=== PATIENT | male | born 1950 | race Caucasian/White ===

== ENCOUNTER 2018-06-14 12:08 | Inpatient (IN) | payer MEDICARE ==
[2018-06-14] MEDS ORDERED: HYDROmorphone 1 MG/ML 1 ML SYRINGE IVP STA ×2 (12:25→13:10)
[2018-06-14] MEDS ORDERED: SODIUM CHLORIDE 0.9% 1,000 ML IV ONE ×2 (12:25→14:32)
[2018-06-14] MEDS ORDERED: ONDANSETRON 4 MG/2 ML VIAL IVP STA (12:25)
--- NOTE | 2018-06-14 12:28 | ED ---
Fall HPI - General Source: patient, EMS Mode of arrival: EMS Limitations: physical limitation <Bob Hercules - Last Filed: 06/14/18 14:16> <Jerman Degroot - Last Filed: 06/14/18 15:06> - General Stated Complaint: Hip Pain Time Seen by Provider: 06/14/18 12:11 - History of Present Illness Initial Comments: This a 68-year-old male presents emergency Department with chief complaint of slip and fall, right hip pain. Patient states he went to check the mail yesterday around noon states that he slipped on ice fell right onto his right hip. Patient states he has severe right hip pain. He was unable to get up so he crawled back into his house and laid there. He states he was unable to get up so he had a urinate on himself. He states that family checked on him today and found him on the ground. Patient states he was unable to get up. Denies any head injury no loss conscious denies any chest pain or shortness of breath. Patient had prior bilateral shoulder surgery by Dr. Negron in the past. (Bob Hercules) - Related Data Home Medications Medication Instructions Recorded Confirmed Hydrocodone/Acetaminophen [[place]enn[place] 1 tab PO Q4H 06/14/18 06/14/18 10-325] Allergies Allergy/AdvReac Type Severity Reaction Status Date / Time No Known Allergies Allergy Verified 06/14/18 12:52 Review of Systems ROS Other: All systems not noted in ROS Statement are negative. <Bob Hercules - Last Filed: 06/14/18 14:16> ROS Other: All systems not noted in ROS Statement are negative. <Jerman Degroot - Last Filed: 06/14/18 15:06> ROS Statement: Those systems with pertinent positive or pertinent negative responses have been documented in the HPI. General Exam General appearance: alert, in no apparent distress Head exam: Present: atraumatic, normocephalic, normal inspection Eye exam: Present: normal appearance, PERRL, EOMI. Absent: scleral icterus, conjunctival injection, periorbital swelling Neck exam: Present: normal inspection, full ROM. Absent: tenderness, meningismus, lymphadenopathy Respiratory exam: Present: normal lung sounds bilaterally. Absent: respiratory distress, wheezes, rales, rhonchi, stridor Cardiovascular Exam: Present: regular rate, normal rhythm, normal heart sounds. Absent: systolic murmur, diastolic murmur, rubs, gallop, clicks Extremities exam: Present: other (Right hips severe times with palpation, pain with any range of motion, neurovascular intact there is some rotation and shortening noted) Neurological exam: Present: alert, oriented X3, CN II-XII intact, reflexes normal. Absent: motor sensory deficit Skin exam: Present: warm, dry, intact, normal color. Absent: rash <Bob Hercules - Last Filed: 06/14/18 14:16> Course <Bob Hercules - Last Filed: 06/14/18 14:16> <Jerman Degroot - Last Filed: 06/14/18 15:06> Vital Signs 06/14/18 12:29 Temperature 98.0 F Pulse Rate 92 Respiratory 19 Rate Blood Pressure 146/78 O2 Sat by Pulse 99 Oximetry - Reevaluation(s) Reevaluation #1: 06/14/18 15:05 PA supervision: I pursued a [id number] evaluation the patient did discuss [employer] him and his family. Patient does have a hip fracture be also does demonstrate evidence of rhabdomyolysis he had fallen and with laying on the floor all night. He also has elevated troponin and does say he's been having fleeting episodes of intermittent chest pains recently. I did discuss the case with Dr. breaux. Patient will be cleared medically for surgery. The patient is admitted to Dr. Baker I do agree with the assessment and plan. (Jerman Degroot ) Medical Decision Making - Lab Data Result diagrams: 06/14/18 12:46 06/14/18 12:46 <Bob Hercules - Last Filed: 06/14/18 14:16> - Lab Data Result diagrams: 06/14/18 12:46 06/14/18 12:46 <Jerman Degroot - Last Filed: 06/14/18 15:06> - Medical Decision Making 68-year-old male present emergency from for a fall. Patient is a right hip fracture. Patient will be admitted to Dr. Baker. Patient will be hydrated , given pain control and [facility] (Bob Hercules) - Lab Data Lab Results 02/17/19 02/17/19 02/17/19 Range/Units 12:46 12:46 12:46 WBC 16.3 H (3.8-10.6) k/uL RBC 4.33 (4.30-5.90) m/uL Hgb 13.9 (13.0-17.5) gm/dL Hct 39.5 (39.0-53.0) % MCV 91.4 (80.0-100.0) fL MCH 32.1 (25.0-35.0) pg MCHC 35.1 (31.0-37.0) g/dL RDW 13.4 (11.5-15.5) % Plt Count 273 (150-450) k/uL Neutrophils % 88 % Lymphocytes % 7 % Monocytes % 4 % Eosinophils % 1 % Basophils % 0 % Neutrophils # 14.3 H (1.3-7.7) k/uL Lymphocytes # 1.1 (1.0-4.8) k/uL Monocytes # 0.6 (0-1.0) k/uL Eosinophils # 0.2 (0-0.7) k/uL Basophils # 0.0 (0-0.2) k/uL PT 10.4 (9.0-12.0) sec INR 1.0 (<1.2) APTT 19.1 L (22.0-30.0) sec Sodium 137 (137-145) mmol/L Potassium 4.2 (3.5-5.1) mmol/L Chloride 103 (98-107) mmol/L Carbon Dioxide 20 L (22-30) mmol/L Anion Gap 14 mmol/L BUN 16 (9-20) mg/dL Creatinine 0.81 (0.66-1.25) mg/dL Est GFR (CKD-EPI)AfAm >90 (>60 ml/min/1.73 sqM) Est GFR (CKD-EPI)NonAf >90 (>60 ml/min/1.73 sqM) Glucose 128 H (74-99) mg/dL Calcium 10.1 (8.4-10.2) mg/dL Total Bilirubin 1.4 H (0.2-1.3) mg/dL AST 223 H (17-59) U/L ALT 58 (21-72) U/L Alkaline Phosphatase 81 (38-126) U/L Total Creatine Kinase (55-170) U/L CK-MB (CK-2) (0.0-2.4) ng/mL CK-MB (CK-2) Rel Index Troponin I (0.000-0.034) ng/mL Total Protein 7.5 (6.3-8.2) g/dL Albumin 4.6 (3.5-5.0) g/dL 06/14/18 Range/Units 12:46 WBC (3.8-10.6) k/uL RBC (4.30-5.90) m/uL Hgb (13.0-17.5) gm/dL Hct (39.0-53.0) % MCV (80.0-100.0) fL MCH (25.0-35.0) pg MCHC (31.0-37.0) g/dL RDW (11.5-15.5) % Plt Count (150-450) k/uL Neutrophils % % Lymphocytes % % Monocytes % % Eosinophils % % Basophils % % Neutrophils # (1.3-7.7) k/uL Lymphocytes # (1.0-4.8) k/uL Monocytes # (0-1.0) k/uL Eosinophils # (0-0.7) k/uL Basophils # (0-0.2) k/uL PT (9.0-12.0) sec INR (<1.2) APTT (22.0-30.0) sec Sodium (137-145) mmol/L Potassium (3.5-5.1) mmol/L Chloride (98-107) mmol/L Carbon Dioxide (22-30) mmol/L Anion Gap mmol/L BUN (9-20) mg/dL Creatinine (0.66-1.25) mg/dL Est GFR (CKD-EPI)AfAm (>60 ml/min/1.73 sqM) Est GFR (CKD-EPI)NonAf (>60 ml/min/1.73 sqM) Glucose (74-99) mg/dL Calcium (8.4-10.2) mg/dL Total Bilirubin (0.2-1.3) mg/dL AST (17-59) U/L ALT (21-72) U/L Alkaline Phosphatase (38-126) U/L Total Creatine Kinase 15339 H* (55-170) U/L CK-MB (CK-2) 18.2 H (0.0-2.4) ng/mL CK-MB (CK-2) Rel Index Troponin I 0.141 H* (0.000-0.034) ng/mL Total Protein (6.3-8.2) g/dL Albumin (3.5-5.0) g/dL 06/14/18 14:04 EKG performed at 13:18 normal sinus rhythm with rate of 85 MS 148 QRS 76 QT status QTC 372/442 (Bob Hercules) Disposition <Bob Hercules - Last Filed: 06/14/18 14:16> <Jerman Degroot - Last Filed: 06/14/18 15:06> Clinical Impression: Fall, Closed right hip fracture, Rhabdomyolysis, Elevated troponin Disposition: ADMITTED IP TO THIS HOSP Condition: Fair
[2018-06-14] MEDS ORDERED: SODIUM CHLORIDE 0.9% 1,000 ML IV SCH ×2 (12:30→14:45)
[2018-06-14 13:18] LABS: Basophils % (A) 0 %; Eosinophils # (A) 0.2 k/uL (0-0.7); Eosinophils % (A) 1 %; HCT 39.5 % (39.0-53.0); HGB 13.9 gm/dL (13.0-17.5); Lymphocytes # (A) 1.1 k/uL (1.0-4.8); Lymphocytes % (A) 7 %; MCH 32.1 pg (25.0-35.0); MCHC 35.1 g/dL (31.0-37.0); MCV 91.4 fL (80.0-100.0); Mean Platelet Volume 7.3; Monocytes # (A) 0.6 k/uL (0-1.0); Monocytes % (A) 4 %; Neutrophils # (A) 14.3 k/uL (1.3-7.7); Neutrophils % (A) 88 %; Platelet Count 273 k/uL (150-450); RBC 4.33 m/uL (4.30-5.90); RDW 13.4 % (11.5-15.5); WBC 16.3 k/uL (3.8-10.6)
[2018-06-14 13:33] LABS: Prothrombin Time 10.4 sec (9.0-12.0)
[2018-06-14 13:37] LABS: ALT 58 U/L (21-72); AST 223 U/L (17-59); Albumin 4.6 g/dL (3.5-5.0); Alkaline Phosphatase 81 U/L (38-126); Anion Gap 14 mmol/L; Blood Urea Nitrogen 16 mg/dL (9-20); Calcium 10.1 mg/dL (8.4-10.2); Carbon Dioxide 20 mmol/L (22-30); Chloride 103 mmol/L (98-107); Glucose 128 mg/dL (74-99); Potassium 4.2 mmol/L (3.5-5.1); Sodium 137 mmol/L (137-145); Total Bilirubin 1.4 mg/dL (0.2-1.3); Total Protein 7.5 g/dL (6.3-8.2)
[2018-06-14 13:49] LABS: Partial Thromboplastin Time 19.1 sec (22.0-30.0)
[2018-06-14] MEDS ORDERED: ONDANSETRON 4 MG/2 ML VIAL IVP PRN (14:00)
[2018-06-14] MEDS ORDERED: NALOXONE 0.4 MG/ML 1 ML VIAL IV PRN (14:00)
--- NOTE | 2018-06-14 14:06 | XR ---
EXAMINATION TYPE: XR chest 1V DATE OF EXAM: 06/14/2018 COMPARISON: NONE HISTORY: 68-year-old male with pain after fall TECHNIQUE: Single frontal view of the chest is obtained. FINDINGS: Heart normal size. Aorta and pulmonary vasculature within normal limits. No consolidation or pleural effusion. IMPRESSION: No acute process.
--- NOTE | 2018-06-14 14:07 | XR ---
EXAMINATION TYPE: XR Hip RT and AP Pelvis DATE OF EXAM: 06/14/2018 COMPARISON: NONE HISTORY: 68-year-old male fall and right hip pain TECHNIQUE: AP view pelvis and 2 views right hip FINDINGS: There is a comminuted, mildly displaced, mildly impacted fracture of the right intertrochanteric miranda on with fragments involving the greater trochanter, lesser trochanter, and intertrochanteric region. The lateral wall appears intact. Rounded bowel content obscuring the sacrum. IMPRESSION: Comminuted, mildly displaced and mildly impacted right IT fracture.
[2018-06-14 14:12] LABS: Creatine Kinase MB 18.2 ng/mL (0.0-2.4)
[2018-06-14 14:32] LABS: Troponin I 0.141 ng/mL (0.000-0.034)
--- NOTE | 2018-06-14 14:35 | ED ---
Medical Decision Making - Medical Decision Making Additional labs came back after the patient was admitted. Patient's also has rhabdomyolysis. Patient was hydrated, started IV fluids at 100ml/hr after 2 L bolus. Patient will have further evaluation by patient [facility]. - Lab Data Result diagrams: 06/14/18 12:46 06/14/18 12:46 Lab Results 06/14/18 06/14/18 06/14/18 Range/Units 12:46 12:46 12:46 WBC 16.3 H (3.8-10.6) k/uL RBC 4.33 (4.30-5.90) m/uL Hgb 13.9 (13.0-17.5) gm/dL Hct 39.5 (39.0-53.0) % MCV 91.4 (80.0-100.0) fL MCH 32.1 (25.0-35.0) pg MCHC 35.1 (31.0-37.0) g/dL RDW 13.4 (11.5-15.5) % Plt Count 273 (150-450) k/uL Neutrophils % 88 % Lymphocytes % 7 % Monocytes % 4 % Eosinophils % 1 % Basophils % 0 % Neutrophils # 14.3 H (1.3-7.7) k/uL Lymphocytes # 1.1 (1.0-4.8) k/uL Monocytes # 0.6 (0-1.0) k/uL Eosinophils # 0.2 (0-0.7) k/uL Basophils # 0.0 (0-0.2) k/uL PT 10.4 (9.0-12.0) sec INR 1.0 (<1.2) APTT 19.1 L (22.0-30.0) sec Sodium 137 (137-145) mmol/L Potassium 4.2 (3.5-5.1) mmol/L Chloride 103 (98-107) mmol/L Carbon Dioxide 20 L (22-30) mmol/L Anion Gap 14 mmol/L BUN 16 (9-20) mg/dL Creatinine 0.81 (0.66-1.25) mg/dL Est GFR (CKD-EPI)AfAm >90 (>60 ml/min/1.73 sqM) Est GFR (CKD-EPI)NonAf >90 (>60 ml/min/1.73 sqM) Glucose 128 H (74-99) mg/dL Calcium 10.1 (8.4-10.2) mg/dL Total Bilirubin 1.4 H (0.2-1.3) mg/dL AST 223 H (17-59) U/L ALT 58 (21-72) U/L Alkaline Phosphatase 81 (38-126) U/L Total Creatine Kinase (55-170) U/L CK-MB (CK-2) (0.0-2.4) ng/mL CK-MB (CK-2) Rel Index Troponin I (0.000-0.034) ng/mL Total Protein 7.5 (6.3-8.2) g/dL Albumin 4.6 (3.5-5.0) g/dL 06/14/18 Range/Units 12:46 WBC (3.8-10.6) k/uL RBC (4.30-5.90) m/uL Hgb (13.0-17.5) gm/dL Hct (39.0-53.0) % MCV (80.0-100.0) fL MCH (25.0-35.0) pg MCHC (31.0-37.0) g/dL RDW (11.5-15.5) % Plt Count (150-450) k/uL Neutrophils % % Lymphocytes % % Monocytes % % Eosinophils % % Basophils % % Neutrophils # (1.3-7.7) k/uL Lymphocytes # (1.0-4.8) k/uL Monocytes # (0-1.0) k/uL Eosinophils # (0-0.7) k/uL Basophils # (0-0.2) k/uL PT (9.0-12.0) sec INR (<1.2) APTT (22.0-30.0) sec Sodium (137-145) mmol/L Potassium (3.5-5.1) mmol/L Chloride (98-107) mmol/L Carbon Dioxide (22-30) mmol/L Anion Gap mmol/L BUN (9-20) mg/dL Creatinine (0.66-1.25) mg/dL Est GFR (CKD-EPI)AfAm (>60 ml/min/1.73 sqM) Est GFR (CKD-EPI)NonAf (>60 ml/min/1.73 sqM) Glucose (74-99) mg/dL Calcium (8.4-10.2) mg/dL Total Bilirubin (0.2-1.3) mg/dL AST (17-59) U/L ALT (21-72) U/L Alkaline Phosphatase (38-126) U/L Total Creatine Kinase 04274 H* (55-170) U/L CK-MB (CK-2) 18.2 H (0.0-2.4) ng/mL CK-MB (CK-2) Rel Index Troponin I 0.141 H* (0.000-0.034) ng/mL Total Protein (6.3-8.2) g/dL Albumin (3.5-5.0) g/dL Disposition Clinical Impression: Fall, Closed right hip fracture, Rhabdomyolysis Disposition: ADMITTED IP TO THIS HOSP Condition: Fair
[2018-06-14 15:17] LABS: Appearance,Urine Clear (Clear); Bilirubin,Urine Negative (Negative); Blood,Urine Large (Negative); Color,Urine Yellow; Glucose,Urine (UA) Negative (Negative); Hyaline Casts,Urine 1 /lpf (0-2); Ketones,Urine 1+ (Negative); Leukocyte Esterase,Urine Negative (Negative); Mucus,Urine Few /hpf; Nitrite,Urine Negative (Negative); PH, Urine 5.5 (5.0-8.0); Protein,Urine 1+ (Negative); RBC,Urine 2 /hpf (0-5); Specific Gravity,Urine 1.024 (1.001-1.035); Squamous Epithelial Cell,Urine <1 /hpf (0-4); Urobilinogen,Urine <2.0 mg/dL (<2.0); WBC,Urine 2 /hpf (0-5)
[2018-06-14] MEDS: HYDROmorphone 1 MG/ML 1 ML SYRINGE IVP PRN ×2 (16:05→22:28)
[2018-06-14] MEDS ORDERED: TEMAZEPAM 15 MG CAP PO PRN (17:37)
[2018-06-14] MEDS ORDERED: ALPRAZolam 0.25 MG TAB PO PRN (17:37)
--- NOTE | 2018-06-14 18:14 | HP ---
HISTORY AND PHYSICAL DATE OF SERVICE: 06/14/2018 CHIEF COMPLAINT: Fall and hip pain. HISTORY OF PRESENT ILLNESS: This 68-year-old gentleman with a past medical history of orthopedic surgery, otherwise no other medical issues, being followed by Dr. Jackson in the outpatient setting apparently went to the mailbox to take in the mail and patient was put on ice and patient fell. Patient was complaining of back pain. Patient unable to crawl to the house and subsequently patient was there almost like 24 hours before help. The room was cold also according to him. Patient came to [facility] Emergency Room today and was found to have a creatine kinase elevated up to 14,044 and right hip fracture suspected. Troponin was also elevated at 0.141. There is no history of fever, rigors. No history of palpitation, headache, loss of consciousness, seizures at this time. PAST MEDICAL HISTORY: DJD. MEDICATIONS: Home medications are hydrocodone 10 mg q.4h p.r.n. ALLERGIES: None. FAMILY HISTORY: History of heart disease and strokes. SOCIAL HISTORY: History of smoking. No history of alcohol intake. REVIEW OF SYSTEMS: ENT: No diminished hearing or vision. CARDIOVASCULAR: No angina. RESPIRATORY: No cough or hemoptysis. GI: No nausea. : No dysuria. NERVOUS SYSTEM: No numbness or weakness. ALLERGY/IMMUNOLOGY: No asthma. MUSCULOSKELETAL: As mentioned earlier. HEMATOLOGY: No history of anemia. ENDOCRINE: No history of diabetes or hypothyroidism. CONSTITUTIONAL: As mentioned. DERMATOLOGY: Negative. RHEUMATOLOGY: Negative. PSYCHIATRY: As mentioned earlier. PHYSICAL EXAMINATION: Alert, oriented x3. Pulse 92, blood pressure 140/78, respirations 19, temperature 98 degrees, pulse ox 99% on room air. HEENT: Conjunctivae normal. NECK: No jugular venous distention. CARDIOVASCULAR: S1, S2. RESPIRATORY: Breath sounds diminished in the bases. No rhonchi, no crackles. ABDOMEN: Soft, nontender. No mass palpable. LEGS: Significant movement of the pain of the right leg on movement. Ecchymosis present. SKIN: No ulcer, rash, bleeding. JOINTS: No active deforming arthropathy. LAB STUDIES: WBC 16.3, sodium 139, potassium 4.2. The total bilirubin is 1.4, AST is 223 and creatine kinase is noted. ASSESSMENT: 1. Fall and possible acute right hip fracture. 2. Acute rhabdomyolysis. 3. Troponin 0.141, rule out myocardial infarction. 4. Increased AST. 5. Increased creatine kinase. 6. Increased WBC possibly reactive. RECOMMENDATIONS AND DISCUSSION: This 68-year-old gentleman was admitted with multiple medical problems with possibly acute right hip fracture. At this time I recommend continue current management and symptomatic treatment. I recommend D5 water with sodium bicarb and continue to monitor. Otherwise monitor CK closely. EKG showed no acute abnormality. Serial troponins will be ordered. Cardiology consultation will be ordered prior to possible surgery. Orthopedic evaluation has been sought. DVT prophylaxis. Pain medications. Prognosis guarded because of multiple complex medical issues. Further recommendations to follow. Copy of dictation forwarded to Dr. Jackson who is the primary physician. PEGGY / SHILAN: [id number] /
[2018-06-14] MEDS: HYDROmorphone 0.5 MG/0.5 ML SYRINGE IVP PRN (19:25)
[2018-06-14] MEDS: HYDROcodone/APAP 10-325MG 1 EACH TAB PO SCH ×2 (21:04→21:08)
[2018-06-14] MEDS: HEPARIN SODIUM,PORCINE 5,000 UNIT/ML 1 ML VIAL SQ SCH (21:05)
[2018-06-14] MEDS: NICOTINE 14MG/24HR PATCH TRANSDERM SCH (21:05)
[2018-06-14] MEDS: DEXTROSE 5% IN WATER 1,000 ML with SODIUM BICARB (1 MEQ/ML) 100 ML IV SCH (21:24)
[2018-06-15] MEDS: HYDROcodone/APAP 10-325MG 1 EACH TAB PO SCH ×5 (01:05→17:52)
[2018-06-15] MEDS: DEXTROSE 5% IN WATER 1,000 ML with SODIUM BICARB (1 MEQ/ML) 100 ML IV SCH ×4 (01:50→23:05)
[2018-06-15] MEDS: HYDROmorphone 1 MG/ML 1 ML SYRINGE IVP PRN ×5 (02:43→16:34)
[2018-06-15 05:38] LABS: Basophils # (A) 0.1 k/uL (0-0.2); Basophils % (A) 1 %; Eosinophils # (A) 0.1 k/uL (0-0.7); Eosinophils % (A) 1 %; HCT 29.3 % (39.0-53.0); Lymphocytes # (A) 2.5 k/uL (1.0-4.8); Lymphocytes % (A) 22 %; MCH 31.5 pg (25.0-35.0); MCHC 33.6 g/dL (31.0-37.0); MCV 93.9 fL (80.0-100.0); Mean Platelet Volume 6.1; Monocytes # (A) 0.6 k/uL (0-1.0); Monocytes % (A) 5 %; Neutrophils # (A) 7.8 k/uL (1.3-7.7); Neutrophils % (A) 70 %; Platelet Count 204 k/uL (150-450); RBC 3.12 m/uL (4.30-5.90); RDW 13.6 % (11.5-15.5); WBC 11.1 k/uL (3.8-10.6)
[2018-06-15 05:45] LABS: HGB 9.8 gm/dL (13.0-17.5)
[2018-06-15 05:49] LABS: ALT 56 U/L (21-72); AST 187 U/L (17-59); Albumin 2.8 g/dL (3.5-5.0); Alkaline Phosphatase 47 U/L (38-126); Anion Gap 4 mmol/L; Blood Urea Nitrogen 14 mg/dL (9-20); Calcium 8.5 mg/dL (8.4-10.2); Carbon Dioxide 28 mmol/L (22-30); Chloride 102 mmol/L (98-107); Glucose 120 mg/dL (74-99); Potassium 4.6 mmol/L (3.5-5.1); Sodium 134 mmol/L (137-145); Total Bilirubin 0.6 mg/dL (0.2-1.3)
[2018-06-15 06:09] LABS: Creatine Kinase 10584 U/L (55-170)
[2018-06-15] MEDS: PANTOPRAZOLE 40 MG TABLET PO SCH (06:42)
[2018-06-15] MEDS: HEPARIN SODIUM,PORCINE 5,000 UNIT/ML 1 ML VIAL SQ SCH ×2 (08:45→23:09)
[2018-06-15] MEDS: NICOTINE 14MG/24HR PATCH TRANSDERM SCH (08:46)
[2018-06-15] MEDS: HYDROmorphone 0.5 MG/0.5 ML SYRINGE IVP PRN ×3 (08:48→23:18)
--- NOTE | 2018-06-15 10:51 | CONS ---
CONSULTATION Mr. Villalobos is a 68-year-old gentleman who is seen for preop cardiac evaluation. This patient had a fall and fractured right hip. The patient was lying on the floor for more than 24 hours. The patient did not have any chest pain. Patient denies any prior history of myocardial infarction or exertional angina, congestive heart failure, stroke, or diabetes. The patient is physically and functionally otherwise active in functional class 3. The patient had a minimally elevated troponin. EKG does not show any acute ischemic changes. PAST MEDICAL HISTORY: Past medical history includes no history of any major surgeries. REVIEW OF THE SYSTEM: Unremarkable. PHYSICAL EXAMINATION: Physical examination at present reveals a 68-year-old gentleman who does not appear to be in any acute distress. Blood pressure is 118/60 mmHg, heart rate is 85 per minute. Head/ENT examination is negative. Neck is supple. There is no increase in jugular venous pressure. Both the carotid pulses are felt. There is no bruit. Chest is symmetrical. HEART: The PMI is not felt. First and second heart sounds are normal. There is no evidence of any murmur. Lungs are clinically clear to auscultation and percussion. Abdomen is soft. Liver and spleen are not enlarged. Bowel sounds are heard. EXTREMITIES: Peripheral pulsations are 2+. EKG shows normal sinus rhythm without any acute ischemic changes. The patient's electrolytes are normal. CPK significantly was elevated. The patient's initial troponin is 0.141. No other troponin is available. The patient's echocardiogram reveals normal left ventricular systolic function without any wall motion. FINAL IMPRESSION: This patient has sustained a fall and he was lying on the floor for long time and has sustained a hip fracture. He did not have any symptoms suggestive of angina. EKG does not show any ischemic changes. The mild elevation in the troponin is most likely due to the rhabdomyolysis and he had been lying on the floor for a long time. We will repeat the EKG and repeat the troponin. If the EKG does not show any ischemic changes, one can proceed with surgery. The risk and benefits were fully explained to the patient and he wants to proceed with the surgery. MMODL / IJN: [id number] /
--- NOTE | 2018-06-15 11:29 | ECHOF ---
Referral [facility] MEASUREMENTS -------- HEIGHT: 162.6 cm WEIGHT: 61.2 kg BP: 118/60 IVSd: 0.8 cm (0.6 - 1.1) LVIDd: 3.8 cm (3.9 - 5.3) LVPWd: 1.0 cm (0.6 - 1.1) IVSs: 1.1 cm LVIDs: 2.3 cm LVPWs: 1.2 cm Ao Diam: 2.7 cm (2.0 - 3.7) AV Cusp: 1.7 cm (1.5 - 2.6) LA Diam: 2.7 cm (2.7 - 3.8) MV EXCURSION: 19.436 mm (> 18.000) MV EF SLOPE: 90 mm/s (70 - 150) EPSS: 1.8 cm MV E Martinez: 0.65 m/s MV DecT: 254 ms MV A Martinez: 0.98 m/s MV E/A Ratio: 0.66 RAP: 5.00 mmHg RVSP: 8.79 mmHg FINDINGS -------- Sinus rhythm. This was a technically difficult study with suboptimal views. Pt unable to turn due to hip fx. The left ventricular size is normal. Left ventricular wall thickness is normal. Overall left vent ricular systolic function is normal with, an EF between 55 - 60 %. The right ventricle is normal in size and function. The left atrium is normal in size. The right atrium is normal in size. The aortic valve is trileaflet, and appears structurally normal. No aortic stenosis or regurgitation. There is trace mitral regurgitation. Trace tricuspid regurgitation present. The right ventricular systolic pressure, as measured by Dopp ler, is 8.79mmHg. Pulmonic valve appears structurally normal. The aortic root size is normal. IVC Not well visulized. The pericardium is normal. CONCLUSIONS -------- 1. Sinus rhythm. 2. This was a technically difficult study with suboptimal views. 3. Pt unable to turn due to hip fx. 4. The left ventricular size is normal. 5. Left ventricular wall thickness is normal. 6. Overall left ventricular systolic function is normal with, an EF between 55 - 60 %. 7. The right ventricle is normal in size and function. 8. The left atrium is normal in size. 9. The right atrium is normal in size. 10. The aortic valve is trileaflet, and appears structurally normal. No aortic stenosis or regurgitat ion. 11. There is trace mitral regurgitation. 12. Trace tricuspid regurgitation present. 13. The right ventricular systolic pressure, as measured by Doppler, is 8.79mmHg. 14. Pulmonic valve appears structurally normal. 15. The aortic root size is normal. 16. IVC Not well visulized. 17. The pericardium is normal. HULL AND DECK REMOVER: Rosa Rocha RDCS
--- NOTE | 2018-06-15 14:29 | P.HPOR ---
History of Present Illness H&P Date: 06/15/18 Chief Complaint: Right dispalced intertrochanteric hip fracture Patient is a 68-year-old male who was brought to [facility] yesterday afternoon with a right hip injury. Patient the day before patient was getting his mail, he fell directly on that right side. After fall, he was unable to weight-bear. He was able to crawl back to his hospital. He was found to the next day by Fabricio. He was immediately brought to the hospital. Imaging and lab tests were done. Images demonstrated a displaced right intertrochanteric femur fracture. I was contacted by the emergency room staff, the case was discussed, the patient was admitted under our care. Patient was evaluated this morning at bedside, had family present. Patient was resting comfortably with no acute pain. He notes discomfort in the right hip with movement. He denies any other orthopedic complaints this time. He denies any previous orthopedic surgery. Patient is relatively healthy. He denies any blood thinners on a daily basis. He denies any fevers or chills, chest pain or shortness of breath at this time. Review of Systems Constitutional: Reports as per HPI Past Medical History Past Medical History: No Reported History History of Any Multi-Drug Resistant Organisms: None Reported Past Surgical History: Orthopedic Surgery Additional Past Surgical History / Comment(s): tonsilectomy, rotator cuff on 2001 Past Anesthesia/Blood Transfusion Reactions: No Reported Reaction Past Psychological History: No Psychological Hx Reported Smoking Status: Current some day smoker Past Alcohol Use History: None Reported Past Drug Use History: None Reported Medications and Allergies Home Medications Medication Instructions Recorded Confirmed Type Hydrocodone/Acetaminophen [Taylor 1 tab PO Q4H 06/14/18 06/14/18 History 10-325] Allergies Allergy/AdvReac Type Severity Reaction Status Date / Time No Known Allergies Allergy Verified 06/14/18 12:52 Physical Examination Right lower extremity: No obvious open lesions or sores, no cervical areas of ecchymosis or soft tissue swelling Obvious shortening and external rotation compared to the contralateral side He is unable to straight leg raise, logroll maneuver reproduces significant pain in the groin Tender with palpation over the greater trochanter No tenderness with palpation throughout the knee, foot or ankle Calf is soft, no tenderness with palpation, sensory exam to light touch is intact, dorsalis pedis pulses 2+ Results - Labs Labs: Abnormal Lab Results - Last 24 Hours (Table) 06/14/18 06/14/18 06/15/18 Range/Units 12:46 14:50 05:07 WBC 11.1 H (3.8-10.6) k/uL RBC 3.12 L (4.30-5.90) m/uL Hgb 9.8 L D (13.0-17.5) gm/dL Hct 29.3 L (39.0-53.0) % Neutrophils # 7.8 H (1.3-7.7) k/uL Sodium (137-145) mmol/L Glucose (74-99) mg/dL AST (17-59) U/L Creatine Kinase (55-170) U/L Total Creatine Kinase 77165 H* (55-170) U/L CK-MB (CK-2) 18.2 H (0.0-2.4) ng/mL Troponin I 0.141 H* (0.000-0.034) ng/mL Total Protein (6.3-8.2) g/dL Albumin (3.5-5.0) g/dL Urine Protein 1+ H (Negative) Urine Ketones 1+ H (Negative) Urine Blood Large H (Negative) Urine Mucus Few H (None) /hpf 06/15/18 06/15/18 Range/Units 05:07 11:51 WBC (3.8-10.6) k/uL RBC (4.30-5.90) m/uL Hgb (13.0-17.5) gm/dL Hct (39.0-53.0) % Neutrophils # (1.3-7.7) k/uL Sodium 134 L (137-145) mmol/L Glucose 120 H (74-99) mg/dL AST 187 H (17-59) U/L Creatine Kinase 89788 H* (55-170) U/L Total Creatine Kinase (55-170) U/L CK-MB (CK-2) (0.0-2.4) ng/mL Troponin I 0.086 H* (0.000-0.034) ng/mL Total Protein 5.0 L (6.3-8.2) g/dL Albumin 2.8 L (3.5-5.0) g/dL Urine Protein (Negative) Urine Ketones (Negative) Urine Blood (Negative) Urine Mucus (None) /hpf H & H 06/14/18 06/15/18 Range/Units 12:46 05:07 Hgb 13.9 9.8 L D (13.0-17.5) gm/dL Hct 39.5 29.3 L (39.0-53.0) % Coagulation 06/14/18 Range/Units 12:46 INR 1.0 (<1.2) Result Diagrams: 06/15/18 05:07 06/15/18 05:07 - Diagnostic results Hip x-ray: report reviewed, image reviewed Assessment and Plan Plan: Imaging: X-ray the right hip and pelvis were obtained. Images demonstrated a right intertrochanteric femur fracture with moderate displacement Assessment: 1. Right intertrochanteric femur fracture 2. Status post fall from standing 3. Other medical comorbidities Plan: I was able to discuss the case, including both physical exam findings and imaging studies might any Dr. Baker. Our plan is to proceed with surgical intervention, more specifically insertion of intramedullary nail of the right femur fracture. We would like to proceed with this on 06/15/2018 Patient was made nothing by mouth on 06/14/2018 Risk and benefits the procedure discussed with the patient, this including but not excluding blood loss, infection, neurovascular injury, infection, development blood clots, pain and stiffness, need for subsequent surgery. Patient is in good understanding would like to proceed Obtaining consent Nonweightbearing right lower extremity Nothing by mouth Medical and cardiac clearance has been achieved Further recommendations to follow after surgery Time with Patient: Less than 30
[2018-06-15] MEDS ORDERED: IV FLUID CONTINUATION 1,000 ML IV ONE (17:06)
[2018-06-15] MEDS ORDERED: LACTATED RINGERS 1,000 ML IV ONE (17:50)
[2018-06-15] MEDS ORDERED: LIDOCAINE 1% INJ 10MG/ML (20 ML MDV) ONE (17:54)
[2018-06-15] MEDS ORDERED: PHENYLEPHRINE-0.9% NACL SYG 1 MG/10 ML SYRINGE ONE (17:54)
[2018-06-15] MEDS ORDERED: ceFAZolin 1,000 MG VIAL ONE (17:54)
[2018-06-15] MEDS ORDERED: PROPOFOL 10 MG/ML 20 ML VIAL IV ONE (17:54)
[2018-06-15] MEDS ORDERED: MIDAZOLAM 2 MG/2 ML VIAL ONE (17:54)
[2018-06-15] MEDS ORDERED: fentaNYL (PF) 50 MCG/ML 2 ML AMP ONE (17:54)
[2018-06-15] MEDS ORDERED: ceFAZolin 1,000 MG in SODIUM CHLORIDE 0.9% 1,000 ML IRRIGATION ONE (18:29)
[2018-06-15] MEDS ORDERED: HYDROmorphone 0.5 MG/0.5 ML SYRINGE IVP PRN ×2 (19:08)
[2018-06-15] MEDS ORDERED: NALOXONE 0.4 MG/ML 1 ML VIAL IV PRN (19:08)
[2018-06-15] MEDS ORDERED: ONDANSETRON 4 MG/2 ML VIAL IVP PRN (19:08)
[2018-06-15] MEDS ORDERED: HYDROcodone/APAP 5-325MG 1 EACH TAB PO PRN (19:08)
--- NOTE | 2018-06-15 19:08 | P.OP ---
Date of Procedure: 06/15/18 Preoperative Diagnosis: Comminuted right hip intertrochanteric fracture Postoperative Diagnosis: Same Procedure(s) Performed: Trochanteric intramedullary nailing right hip intertrochanteric fracture Implants: Synthes 10 mm/130 degree cannulated trochanteric femoral nail/170 mm with a 11 x 90 mm helical blade and one 5.0 36 mm distal locking screw Anesthesia: SILVIA Surgeon: Harjit Baker Pelletising Extruder Operator #1: David Sauceda Estimated Blood Loss (ml): 20 Pathology: none sent Condition: stable Disposition: PACU Indications for Procedure: 68-year-old patient seen with a comminuted displaced right hip intertrochanteric fracture. I recommended intramedullary trochanteric nailing. I reviewed the procedure, risks, complications and recovery. Patient was agreeable and consent was obtained Operative Findings: see description of procedure Description of Procedure: The patient was taken to the operative suite. The patient underwent a general anesthetic by the department of anesthesia. The patient received preoperative antibiotics. The patient was transferred to the [place] table. Both lower extremities were placed in the spars. The left lower extremity was dropped on the ground. The right lower extremity is placed in traction with adduction and slight internal rotation. C-arm was brought into the field confirming adequate reduction. The right hip was now prepped and draped in the normal sterile fashion. An incision was made just proximal to the greater trochanter. Blunt dissection taken down to the tip of the trochanter. I then introduced a guidewire by hand making sure I was at the proper entry point and intramedullary. This was confirmed under AP and lateral intraoperative imaging. I now opened up the proximal trochanteric area. I now shows the 10 mm I want her 70 mm Synthes cannulated trochanteric nail. It was introduced into the trochanteric opening and then tapped down the intramedullary canal until it was in appropriate position. I now introduced my guide for the helical blade. An incision was made. The guide was laced down touching the proximal lateral femur. I now introduced a guidewire making sure was properly position under AP and lateral intraoperative imaging. I then reamed appropriately over the guidewire introduced my 11 mm x 90 mm helical blade. We now locked in position with our set screw. We then introduced a guide for our distal locking screw. An incision was made. The guide was taken down to the lateral cortex. The drill hole was made and a 36 mm screw was introduced with good bite and purchase. I checked the entire construct under AP lateral operative imaging was stable. All the outriggers were removed. We again reviewed the construct with a good reduction and internal fixation placement. Spot films were obtained to document that. The wounds were irrigated with antibiotic irrigant solution. The subcu soft tissues were approximated with 2- 0 Vicryl and all 3 incision sites. The skin margins were approximated with skin payam all 3 incision sites. Sterile dressings were applied. The patient was awakened, transferred to a bed and recovery stable condition. Tin GARRETT assisted with the procedure.
[2018-06-15] MEDS ORDERED: HYDROmorphone 1 MG/ML 1 ML SYRINGE IVP ONE ×4 (19:29→20:40)
[2018-06-15] MEDS ORDERED: diphenhydrAMINE 50 MG/ML 1 ML VIAL IVP ONE (19:40)
[2018-06-15] MEDS ORDERED: fentaNYL (PF) 50 MCG/ML 2 ML AMP IVP ONE (19:54)
[2018-06-15] MEDS: SODIUM CHLORIDE 0.9% 1,000 ML IV SCH (20:11)
--- NOTE | 2018-06-15 20:11 | PN ---
PROGRESS NOTE DATE OF SERVICE: 06/15/2018 This 68-year-old gentleman admitted with fall and significant rhabdomyolysis. Patient also had renal failure. The patient also had right hip fracture also. The troponin was elevated. Cardiology has been consulted. A 2D echo with Doppler was done which showed normal ejection fraction 50-60 percent. EKG did not show any acute abnormality. Cardiology has cleared the patient for surgery. No chest pain. No palpitations. No fever. No shortness of breath. EXAM: Alert and oriented x3. Pulse 85. Blood pressure 118/60. Respirations 18. Temperature 98.4, pulse ox 98% on room air. HEENT: Conjunctivae normal. NECK: No jugular venous distention. CARDIOVASCULAR: S1-S2 muffled. Respirations: Breath sounds diminished in the bases. No rhonchi. No crackles. Abdomen: Soft. Legs status post right hip fracture. Nervous system: No focal deficits. LABS: WBC 11.2, hemoglobin 9.2. Sodium 134, creatinine kinase is 10, 584. ASSESSMENT: 1. Fall and status post right hip fracture. 2. Acute rhabdomyolysis. 3. Troponin 0.141 indeterminate. 4. Possibly secondary rhabdomyolysis. 5. Increased AST. 6. Increased creatinine kinase. 7. Increased WBC possibly reactive. BECAUSE: Recommend to continue current medications. Continue with monitoring. Symptomatic treatment. Otherwise, at this time, I would recommend continue the rest of medications. Patient will be cleared for surgery. Repeat labs. Continue with IV fluids and guarded prognosis. Further recommendations to follow. MMKISHOREL / IJN: [id number] /
[2018-06-15] MEDS: HYDROcodone/APAP 5-325MG 1 EACH TAB PO PRN (21:16)
[2018-06-15 22:56] LABS: Basophils % (A) 0 %; Eosinophils # (A) 0.1 k/uL (0-0.7); Eosinophils % (A) 1 %; HCT 26.4 % (39.0-53.0); HGB 9.1 gm/dL (13.0-17.5); Lymphocytes # (A) 1.2 k/uL (1.0-4.8); Lymphocytes % (A) 13 %; MCH 32.4 pg (25.0-35.0); MCHC 34.5 g/dL (31.0-37.0); Mean Platelet Volume 6.3; Monocytes # (A) 0.5 k/uL (0-1.0); Monocytes % (A) 5 %; Neutrophils # (A) 7.8 k/uL (1.3-7.7); Neutrophils % (A) 81 %; Platelet Count 171 k/uL (150-450); RBC 2.81 m/uL (4.30-5.90); RDW 13.4 % (11.5-15.5); WBC 9.7 k/uL (3.8-10.6)
[2018-06-15] MEDS: ceFAZolin IN SWFI 2 GM/20 ML SYRINGE IVP SCH (23:09)
[2018-06-15] MEDS: SENNOSIDES-DOCUSATE SODIUM 1 EACH TAB PO SCH (23:09)
[2018-06-16] MEDS: HYDROmorphone 0.5 MG/0.5 ML SYRINGE IVP PRN ×2 (02:50→07:08)
[2018-06-16] MEDS: HYDROcodone/APAP 5-325MG 1 EACH TAB PO PRN ×2 (03:58→09:24)
--- NOTE | 2018-06-16 04:55 | FL ---
EXAMINATION TYPE: FL guidance operating room, XR Hip Complete RT DATE OF EXAM: 06/15/2018 FINDINGS: 2 intraoperative fluoroscopic images during antegrade intramedullary nailing and screw fixation on th e right. FLUOROSCOPY Fluoroscopy time of 1 minute 58 seconds was used during right hip IT nailing. 2 image/s document/s t he procedure. IMPRESSION: Intraoperative fluoroscopy as above.
[2018-06-16] MEDS: NICOTINE 14MG/24HR PATCH TRANSDERM SCH (07:07)
[2018-06-16] MEDS: PANTOPRAZOLE 40 MG TABLET PO SCH (07:07)
[2018-06-16] MEDS: HEPARIN SODIUM,PORCINE 5,000 UNIT/ML 1 ML VIAL SQ SCH ×3 (07:07→22:34)
[2018-06-16] MEDS: ENOXAPARIN 40 MG/0.4 ML SYRINGE SQ SCH (07:07)
[2018-06-16] MEDS: ceFAZolin IN SWFI 2 GM/20 ML SYRINGE IVP SCH (08:01)
[2018-06-16 08:14] LABS: Basophils # (A) 0.1 k/uL (0-0.2); Basophils % (A) 1 %; Eosinophils # (A) 0.1 k/uL (0-0.7); Eosinophils % (A) 1 %; HCT 26.6 % (39.0-53.0); HGB 8.9 gm/dL (13.0-17.5); Lymphocytes # (A) 1.8 k/uL (1.0-4.8); Lymphocytes % (A) 22 %; MCH 31.7 pg (25.0-35.0); MCHC 33.6 g/dL (31.0-37.0); MCV 94.4 fL (80.0-100.0); Mean Platelet Volume 6.3; Monocytes # (A) 0.5 k/uL (0-1.0); Monocytes % (A) 6 %; Neutrophils # (A) 5.4 k/uL (1.3-7.7); Neutrophils % (A) 68 %; Platelet Count 188 k/uL (150-450); RBC 2.81 m/uL (4.30-5.90); RDW 13.4 % (11.5-15.5); WBC 7.9 k/uL (3.8-10.6)
[2018-06-16 08:35] LABS: ALT 65 U/L (21-72); AST 154 U/L (17-59); Albumin 2.6 g/dL (3.5-5.0); Alkaline Phosphatase 59 U/L (38-126); Anion Gap 3 mmol/L; Blood Urea Nitrogen 9 mg/dL (9-20); Calcium 8.3 mg/dL (8.4-10.2); Carbon Dioxide 32 mmol/L (22-30); Chloride 99 mmol/L (98-107); Glucose 94 mg/dL (74-99); Potassium 4.3 mmol/L (3.5-5.1); Sodium 134 mmol/L (137-145); Total Bilirubin 1.1 mg/dL (0.2-1.3); Total Protein 4.8 g/dL (6.3-8.2)
[2018-06-16] MEDS: DEXTROSE 5% IN WATER 1,000 ML with SODIUM BICARB (1 MEQ/ML) 100 ML IV SCH ×3 (08:40→23:40)
[2018-06-16] MEDS: SODIUM CHLORIDE 0.9% 1,000 ML IV SCH ×2 (08:41→22:35)
[2018-06-16 09:21] LABS: Creatine Kinase 6513 U/L (55-170)
[2018-06-16] MEDS ORDERED: HYDROcodone/APAP 10-325MG 1 EACH TAB PO PRN (10:08)
[2018-06-16] MEDS: HYDROmorphone 1 MG/ML 1 ML SYRINGE IVP PRN ×5 (10:14→22:32)
[2018-06-16] MEDS: traMADol 50 MG TAB PO SCH ×4 (11:22→21:06)
--- NOTE | 2018-06-16 12:59 | P.PN ---
Subjective Progress Note Date: 06/16/18 Principal diagnosis: Status post intramedullary nail right intertrochanteric femur fracture Patient I would at bedside today, he did have an increase in pain. We did increase his oral pain medication. Darby catheter remains in place. He has not worked with physical therapy at this time. Denies any chest pain or shortness of breath. Objective - Vital Signs Vital signs: Vital Signs Temp 99.4 F 06/16/18 07:05 Pulse 76 06/16/18 07:05 Resp 16 06/16/18 07:40 BP 141/70 06/16/18 07:05 Pulse Ox 97 06/16/18 07:05 Intake & Output 06/15/18 06/16/18 06/16/18 18:59 06:59 18:59 Intake Total 1101 475 354 Output Total 600 1330 Balance 501 -855 354 Intake: IV 1101 250 Intake, IV Titration 225 Amount Sodium Chloride 0.9% 1, 225 000 ml @ 75 mls/hr IV . [id number] [facility] Rx#:[id number] Oral 354 Output: Urine 600 1310 Estimated Blood Loss 20 Other: Voiding Method Indwelling Catheter Indwelling Catheter Indwelling Catheter - Exam Right lower extremity: Incision is clean, dry, and intact. Sara are in good position There is minimal soft tissue swelling and ecchymosis surrounding the medial and lateral aspects of the incision. Calf is soft, no tenderness with palpation. Plantar flexion, dorsiflexion, EHL, FHL are intact. Sensory exam to light touch throughout the extremity is intact, dorsal pedis pulses 2+. - Labs CBC & Chem 7: 06/16/18 07:01 06/16/18 07:01 Labs: Abnormal Lab Results - Last 24 Hours (Table) 06/15/18 06/16/18 06/16/18 Range/Units 22:43 07:01 07:01 RBC 2.81 L 2.81 L (4.30-5.90) m/uL Hgb 9.1 L 8.9 L (13.0-17.5) gm/dL Hct 26.4 L 26.6 L (39.0-53.0) % Neutrophils # 7.8 H (1.3-7.7) k/uL Sodium 134 L (137-145) mmol/L Carbon Dioxide 32 H (22-30) mmol/L Calcium 8.3 L (8.4-10.2) mg/dL AST 154 H (17-59) U/L Creatine Kinase 6513 H* (55-170) U/L Total Protein 4.8 L (6.3-8.2) g/dL Albumin 2.6 L (3.5-5.0) g/dL Assessment and Plan Plan: Assessment: Postop day 1 status post intramedullary nail right intertrochanteric femur fracture Plan: Pain control, continue current medication GI and DVT prophylaxis, continue subcu medication Discontinue urinary catheter today Attempt gait training with physical therapy and use of walker Medical recommendations Further recommendations to follow Time with Patient: Less than 30
[2018-06-16] MEDS ORDERED: traMADol 50 MG TAB PO SCH (13:00)
[2018-06-16] MEDS: HYDROcodone/APAP 10-325MG 1 EACH TAB PO PRN ×2 (15:06→21:06)
--- NOTE | 2018-06-16 16:29 | XR ---
EXAMINATION TYPE: XR chest 1V portable DATE OF EXAM: 06/16/2018 Comparison: 06/14/2018 Clinical History: 68-year-old male with fever, assess for pneumonia Findings: Rightward patient rotation alters normal cardiac and mediastinal contours. Heart appears normal size. Aorta and pulmonary vasculature within normal limits. Some strandy right midlung atelectasis. No fra nk consolidation or pleural effusion seen. Impression: Limited rotated exam. No definite acute cardiopulmonary process.
--- NOTE | 2018-06-16 18:54 | PN ---
PROGRESS NOTE DATE OF SERVICE: 06/16/2018 This 68-year-old gentleman who was admitted after a fall and right hip fracture has significant abnormalities also. The patient underwent trochanteric intramedullary nailing by Dr. Baker. The patient is being closely monitored at this time. The creatine kinase has improved to 6513. At this time the patient is complaining of severe pain. PT/OT is evaluating the patient. Past medical history reviewed. REVIEW OF SYSTEMS: CARDIOVASCULAR SYSTEM: No angina, palpitations. RESPIRATORY SYSTEM: As mentioned earlier. GI: No nausea, vomiting. : No dysuria or retention. NERVOUS SYSTEM: No numbness, weakness. CURRENT MEDICATIONS: Reviewed. They include: 1. [place] 10 mg q.6 p.r.n. 2. Xanax 0.25 t.i.d. 3. Dextrose water with bicarb. 4. Lovenox 40 mg subcutaneously daily. 5. Heparin subcutaneously b.i.d. 6. Dilaudid. 7. Narcan. 8. Habitrol. 9. Zofran. 10.Protonix. 11.Restoril. 12.Ultram. PHYSICAL EXAMINATION: Patient is alert, oriented x3. Pulse 102, blood pressure 132/73, T-max 100.4, pulse ox 98% on room air. HEENT: Conjunctivae normal. NECK: No jugular venous distention. CARDIOVASCULAR SYSTEM: S1, S2 muffled. RESPIRATORY SYSTEM: Breath sounds diminished at the bases. A few rhonchi. No crackles. ABDOMEN: Soft, nontender. LEGS: Status post surgery. SKIN: No ulcer, rash, bleeding. JOINTS: Non-tender. LABS: WBC 7.9, hemoglobin 8.9, sodium 134. Creatine kinase noted. ASSESSMENT: 1. Fall and status post right hip fracture, status post intertrochanteric intramedullary nailing of the right hip fracture. 2. Fever. 3. Acute rhabdomyolysis. 4. Troponin 0.14, indeterminant, possibly secondary to rhabdomyolysis. 5. Increased AST. 6. Increased creatine kinase. 7. Increased white count, possibly reactive, improving. RECOMMENDATIONS AND DISCUSSION: In this 68-year-old gentleman who presented with multiple complex medical issues, we will monitor the patient closely, continue the current medications, continue with symptomatic treatment. I would recommend repeat chest x-ray. Continue the rest of the medications. Monitor CK closely, which is showing a slightly diminishing trend at this time. Renal functions are still preserved. Will continue to monitor. Further recommendations to follow. Closely follow with Orthopedic Surgery. MMODL / IJN: [id number] /
[2018-06-16] MEDS: SENNOSIDES-DOCUSATE SODIUM 1 EACH TAB PO SCH (21:06)
[2018-06-17] MEDS: HYDROmorphone 1 MG/ML 1 ML SYRINGE IVP PRN ×2 (01:33→04:43)
[2018-06-17] MEDS: HYDROcodone/APAP 10-325MG 1 EACH TAB PO PRN ×4 (03:18→20:13)
[2018-06-17] MEDS: DEXTROSE 5% IN WATER 1,000 ML with SODIUM BICARB (1 MEQ/ML) 100 ML IV SCH ×3 (04:46→19:23)
[2018-06-17 07:11] LABS: Basophils # (A) 0.1 k/uL (0-0.2); Basophils % (A) 1 %; Eosinophils # (A) 0.1 k/uL (0-0.7); Eosinophils % (A) 2 %; HCT 25.4 % (39.0-53.0); HGB 8.5 gm/dL (13.0-17.5); Lymphocytes # (A) 1.3 k/uL (1.0-4.8); Lymphocytes % (A) 16 %; MCH 32.4 pg (25.0-35.0); MCHC 33.6 g/dL (31.0-37.0); MCV 96.4 fL (80.0-100.0); Mean Platelet Volume 6.4; Monocytes # (A) 0.5 k/uL (0-1.0); Monocytes % (A) 6 %; Neutrophils # (A) 6.3 k/uL (1.3-7.7); Neutrophils % (A) 75 %; Platelet Count 210 k/uL (150-450); RBC 2.64 m/uL (4.30-5.90); RDW 13.2 % (11.5-15.5); WBC 8.4 k/uL (3.8-10.6)
[2018-06-17 07:27] LABS: ALT 67 U/L (21-72); AST 135 U/L (17-59); Albumin 2.5 g/dL (3.5-5.0); Alkaline Phosphatase 76 U/L (38-126); Anion Gap 2 mmol/L; Blood Urea Nitrogen 7 mg/dL (9-20); Calcium 8.2 mg/dL (8.4-10.2); Carbon Dioxide 31 mmol/L (22-30); Chloride 100 mmol/L (98-107); Glucose 100 mg/dL (74-99); Potassium 4.1 mmol/L (3.5-5.1); Sodium 133 mmol/L (137-145); Total Bilirubin 0.9 mg/dL (0.2-1.3); Total Protein 4.6 g/dL (6.3-8.2)
[2018-06-17 07:57] LABS: Creatine Kinase 4971 U/L (55-170)
[2018-06-17] MEDS: HEPARIN SODIUM,PORCINE 5,000 UNIT/ML 1 ML VIAL SQ SCH ×2 (08:00→21:44)
[2018-06-17] MEDS: PANTOPRAZOLE 40 MG TABLET PO SCH (08:22)
[2018-06-17] MEDS: ENOXAPARIN 40 MG/0.4 ML SYRINGE SQ SCH (08:22)
[2018-06-17] MEDS: NICOTINE 14MG/24HR PATCH TRANSDERM SCH (08:22)
[2018-06-17] MEDS: traMADol 50 MG TAB PO SCH ×4 (08:22→21:45)
[2018-06-17] MEDS: HYDROmorphone 0.5 MG/0.5 ML SYRINGE IVP PRN ×3 (12:29→22:21)
--- NOTE | 2018-06-17 14:10 | P.PN ---
Subjective Progress Note Date: 06/17/18 Principal diagnosis: Status post intramedullary nail right intertrochanteric femur fracture Patient evaluated at bedside today, resting comfortably.. Denies any chest pain or shortness of breath. Objective - Vital Signs Vital signs: Vital Signs Temp 98.9 F 06/16/18 23:52 Pulse 93 06/16/18 23:52 Resp 16 06/16/18 23:52 BP 104/62 06/16/18 23:52 Pulse Ox 98 06/16/18 23:52 Intake & Output 06/16/18 06/17/18 06/17/18 18:59 06:59 18:59 Intake Total 354 262.5 1669 Output Total 150 Balance 354 112.5 1669 Intake: Intake, IV Titration 262.5 600 Amount Sodium Chloride 0.9% 1, 262.5 600 000 ml @ 75 mls/hr IV . [id number] [facility] Rx#:[id number] Oral 354 1069 Output: Urine 150 Other: Voiding Method Indwelling Catheter Urinal # Voids 3 - Exam Right lower extremity: Incision is clean, dry, and intact. Sara are in good position There is minimal soft tissue swelling and ecchymosis surrounding the medial and lateral aspects of the incision. Calf is soft, no tenderness with palpation. Plantar flexion, dorsiflexion, EHL, FHL are intact. Sensory exam to light touch throughout the extremity is intact, dorsal pedis pulses 2+. - Labs CBC & Chem 7: 06/17/18 06:20 06/17/18 06:20 Labs: Abnormal Lab Results - Last 24 Hours (Table) 06/17/18 06/17/18 Range/Units 06:20 06:20 RBC 2.64 L (4.30-5.90) m/uL Hgb 8.5 L (13.0-17.5) gm/dL Hct 25.4 L (39.0-53.0) % Sodium 133 L (137-145) mmol/L Carbon Dioxide 31 H (22-30) mmol/L BUN 7 L (9-20) mg/dL Glucose 100 H (74-99) mg/dL Calcium 8.2 L (8.4-10.2) mg/dL AST 135 H (17-59) U/L Creatine Kinase 4971 H* (55-170) U/L Total Protein 4.6 L (6.3-8.2) g/dL Albumin 2.5 L (3.5-5.0) g/dL Assessment and Plan Plan: Assessment: Postop day #2 status post intramedullary nail right intertrochanteric femur fracture Plan: Pain control, continue current medication GI and DVT prophylaxis, continue subcu medication Discontinue urinary catheter today Attempt gait training with physical therapy and use of walker Medical recommendations Hopeful discharge to rehab tomorrow Time with Patient: Less than 30
[2018-06-17 15:19] VITALS: BMI 23.3
[2018-06-17] MEDS: SODIUM CHLORIDE 0.9% 1,000 ML IV SCH (17:53)
--- NOTE | 2018-06-17 18:17 | PN ---
PROGRESS NOTE DATE OF SERVICE: 06/17/2018 This 68-year-old gentleman who was admitted with a fall and right hip fracture also had intertrochanteric intramedullary nailing of the right hip fracture. Patient is being closely monitored at this time. No chest pain. No palpitations. No fever. Patient also had rhabdomyolysis, which is also improving. CK is 4971 at this time. On exam, alert and oriented x3. The pulse is 93, blood pressure 117/55, respirations 16, temperature 98.1, pulse ox 98% on room air. HEENT: Conjunctivae normal. NECK: No jugular venous distention. CARDIOVASCULAR SYSTEM: S1, S2 muffled. RESPIRATORY SYSTEM: Breath sounds diminished at the bases. A few scattered rhonchi. No crackles. ABDOMEN: Soft, non-tender. LEGS: Status post surgery. NERVOUS SYSTEM: No focal deficit. LABS: WBC 8.4, hemoglobin 8.5, sodium 133, potassium 4.1, and AST is 135. Creatinine kinase is 4971. ASSESSMENT: 1. Fall and right hip fracture, status post intertrochanteric intramedullary nailing of the right hip fracture. 2. Fever. 3. Acute rhabdomyolysis. 4. Troponin 0.141, indeterminate, possibly secondary to rhabdomyolysis. 5. Increased AST. 6. Increased creatine kinase. 7. Increased white count, possibly reactive, improving. RECOMMENDATIONS AND DISCUSSION: In this 68-year-old gentleman who presented with multiple medical issues, at this time I recommend to continue current management, continue symptomatic treatment, continue with the IV fluids. Patient's CK is still elevated, indicating rhabdomyolysis. Continue the DVT prophylaxis. Continue the rest of the medications. Closely follow with Orthopedic Surgery. Once the pain is controlled and rhabdomyolysis is stabilized, the patient will be ready for discharge to ECF, probably in the next one or two days. Guarded prognosis. Further recommendations to follow. MMODL / IJN: [id number] /
[2018-06-17] MEDS: SENNOSIDES-DOCUSATE SODIUM 1 EACH TAB PO SCH (21:44)
[2018-06-18] MEDS: SODIUM CHLORIDE 0.9% 1,000 ML IV SCH ×2 (00:34→14:29)
[2018-06-18] MEDS: HYDROmorphone 0.5 MG/0.5 ML SYRINGE IVP PRN (01:31)
[2018-06-18] MEDS: DEXTROSE 5% IN WATER 1,000 ML with SODIUM BICARB (1 MEQ/ML) 100 ML IV SCH ×3 (02:24→14:29)
[2018-06-18] MEDS: HYDROcodone/APAP 10-325MG 1 EACH TAB PO PRN ×4 (03:08→21:30)
[2018-06-18 07:59] LABS: Basophils # (A) 0.1 k/uL (0-0.2); Basophils % (A) 1 %; Eosinophils # (A) 0.2 k/uL (0-0.7); Eosinophils % (A) 3 %; HCT 25.7 % (39.0-53.0); HGB 8.2 gm/dL (13.0-17.5); Lymphocytes # (A) 1.5 k/uL (1.0-4.8); Lymphocytes % (A) 24 %; MCH 31.1 pg (25.0-35.0); MCV 97.1 fL (80.0-100.0); Mean Platelet Volume 7.2; Monocytes # (A) 0.5 k/uL (0-1.0); Monocytes % (A) 8 %; Neutrophils # (A) 3.9 k/uL (1.3-7.7); Neutrophils % (A) 62 %; Platelet Count 256 k/uL (150-450); RBC 2.65 m/uL (4.30-5.90); RDW 13.2 % (11.5-15.5); WBC 6.3 k/uL (3.8-10.6)
[2018-06-18] MEDS: PANTOPRAZOLE 40 MG TABLET PO SCH (08:09)
[2018-06-18] MEDS: traMADol 50 MG TAB PO SCH ×4 (08:09→22:19)
[2018-06-18] MEDS: HYDROmorphone 1 MG/ML 1 ML SYRINGE IVP PRN ×5 (08:09→21:05)
[2018-06-18 08:11] LABS: ALT 82 U/L (21-72); AST 119 U/L (17-59); Albumin 2.6 g/dL (3.5-5.0); Alkaline Phosphatase 119 U/L (38-126); Anion Gap 4 mmol/L; Blood Urea Nitrogen 7 mg/dL (9-20); Calcium 8.5 mg/dL (8.4-10.2); Carbon Dioxide 32 mmol/L (22-30); Chloride 100 mmol/L (98-107); Glucose 106 mg/dL (74-99); Potassium 4.7 mmol/L (3.5-5.1); Sodium 136 mmol/L (137-145); Total Protein 4.8 g/dL (6.3-8.2)
[2018-06-18] MEDS: NICOTINE 14MG/24HR PATCH TRANSDERM SCH (08:12)
[2018-06-18 08:39] LABS: Creatine Kinase 2244 U/L (55-170)
[2018-06-18] MEDS: ENOXAPARIN 40 MG/0.4 ML SYRINGE SQ SCH (11:24)
[2018-06-18] MEDS ORDERED: LIDOCAINE 1% INJ 10MG/ML (20 ML MDV) SQ ONE (11:28)
[2018-06-18] MEDS ORDERED: methylPREDNISolone ACETATE 40 MG/ML 1 ML VIAL INTRABURSA STA (11:32)
[2018-06-18] MEDS: HEPARIN SODIUM,PORCINE 5,000 UNIT/ML 1 ML VIAL SQ SCH (11:33)
--- NOTE | 2018-06-18 12:19 | P.PN ---
Subjective Progress Note Date: 06/18/18 Principal diagnosis: Status post intramedullary nail right intertrochanteric femur fracture Patient evaluated at bedside today, resting comfortably. Patient complains of right knee pain, notable swelling present. Denies any chest pain or shortness of breath. Objective - Vital Signs Vital signs: Vital Signs Temp 97.9 F 06/18/18 07:12 Pulse 84 06/18/18 07:12 Resp 14 06/18/18 07:12 BP 121/62 06/18/18 07:12 Pulse Ox 99 06/18/18 07:12 Intake & Output 06/17/18 06/18/18 06/18/18 18:59 06:59 18:59 Intake Total 1669 Output Total 1025 475 Balance 1669 -1025 -475 Weight 61.6 kg Intake: Intake, IV Titration 600 Amount Sodium Chloride 0.9% 1, 600 000 ml @ 75 mls/hr IV . [id number] [facility] Rx#:[id number] Oral 1069 Output: Urine 1025 475 Other: Voiding Method Urinal - Exam Right lower extremity: Incision is clean, dry, and intact. Sara are in good position There is minimal soft tissue swelling and ecchymosis surrounding the medial and lateral aspects of the incision. Calf is soft, no tenderness with palpation. Plantar flexion, dorsiflexion, EHL, FHL are intact. Sensory exam to light touch throughout the extremity is intact, dorsal pedis pulses 2+. Obvious effusion present over the right knee, no ecchymosis or soft tissue swelling. - Labs CBC & Chem 7: 06/18/18 07:34 06/18/18 07:34 Labs: Abnormal Lab Results - Last 24 Hours (Table) 06/18/18 06/18/18 Range/Units 07:34 07:34 RBC 2.65 L (4.30-5.90) m/uL Hgb 8.2 L (13.0-17.5) gm/dL Hct 25.7 L (39.0-53.0) % Sodium 136 L (137-145) mmol/L Carbon Dioxide 32 H (22-30) mmol/L BUN 7 L (9-20) mg/dL Glucose 106 H (74-99) mg/dL AST 119 H (17-59) U/L ALT 82 H (21-72) U/L Creatine Kinase 2244 H* (55-170) U/L Total Protein 4.8 L (6.3-8.2) g/dL Albumin 2.6 L (3.5-5.0) g/dL Assessment and Plan Plan: Assessment: Postop day #3 status post intramedullary nail right intertrochanteric femur fracture Right knee effusion Right knee osteoarthritis Plan: Pain control, continue current medication GI and DVT prophylaxis, continue subcu medication Discontinue urinary catheter today Attempt gait training with physical therapy and use of walker With regards to the right knee arthritis and current effusion, I recommended aspiration with steroid injection to help him symptomatically. We will plan to do this later this afternoon. See procedure note for further detail. Medical recommendations Hopeful discharge to rehab tomorrow Time with Patient: Less than 30
--- NOTE | 2018-06-18 15:13 | P.PCN ---
Date of Procedure: 06/18/18 Preoperative Diagnosis: Right knee osteoarthritis, right knee effusion Postoperative Diagnosis: Same Procedure(s) Performed: Right knee aspiration with intra-articular cortisone injection Implants: None Anesthesia: local Surgeon: David Sauceda Estimated Blood Loss (ml): 0 Pathology: none sent Condition: stable Disposition: no change Indications for Procedure: Right knee pain/right knee effusion Description of Procedure: Patient is a 68-year-old male who had recently undergone a right hip procedure after sustaining a fracture of the proximal femur. Since his admission, he's noticed increasing swelling of his right knee. Patient is a known history of osteoarthritis. Due to the amount of swelling and discomfort, I recommended an aspiration with intra-articular steroid injection to provide symptomatically. Risks and benefits the procedure discussed with patient at bedside, using good understanding and wanted to proceed. The leg was prepped with 1 ChloraPrep swab and to alcohol swabs. I first injected 3 mL 1% plain lidocaine suprapatellar approach. An aspiration was attempted with a 30 mL syringe. I was only able to aspirate maybe 2 mm of fluid. I then switched syringes and placed 2 mL 1% plain lidocaine and 40 mg of Depo-Medrol. Patient tolerated the procedure well, bandages placed.
--- NOTE | 2018-06-18 18:09 | PN ---
PROGRESS NOTE DATE OF SERVICE: 06/18/2018 This 68-year-old gentleman who was admitted with a fall and right hip fracture is being closely monitored. The patient also had intertrochanteric intramedullary nailing. The patient is improving significantly. No chest pain. No palpitations. No fever. The patient also has left knee pain. Orthopedics is planning possible aspiration. On exam, alert and oriented x3. Pulse is 91, blood pressure 126/60, respiration 18, temperature 98.2, pulse ox 99% on room air. HEENT: Conjunctivae normal. NECK: No jugular venous distention. CARDIOVASCULAR SYSTEM: S1, S2 muffled. RESPIRATORY SYSTEM: Breath sounds diminished at the bases. No rhonchi. No crackles. ABDOMEN: Soft, non-tender. LEGS: Status post surgery on the right leg and right knee. Swelling also present. Mild tenderness. LABS: WBC 6.3, hemoglobin 8.2, sodium 136. Creatine kinase is 2244. ASSESSMENT: 1. Fall and right hip fracture, status post intertrochanteric intramedullary nailing of the right hip fracture. 2. Fever. 3. Acute rhabdomyolysis. 4. Right knee swelling. 5. Troponin 0.141, indeterminate, possibly secondary to rhabdomyolysis. 6. Increased AST. 7. Increased creatine kinase. 8. Increased white count, possibly reactive, improving. RECOMMENDATIONS AND DISCUSSION: I recommend to continue current medications, continue with symptomatic treatment. I would also recommend serum uric acid to continue the workup. Otherwise, closely follow with Orthopedic Surgery. PT/OT evaluation. Continue with IV fluids. Once the patient is stabilized, possible ECF rehab in the next 24-48 hours possibly. MMODL / IJN: [id number] /
[2018-06-18] MEDS: SENNOSIDES-DOCUSATE SODIUM 1 EACH TAB PO SCH (21:31)
[2018-06-19] MEDS: DEXTROSE 5% IN WATER 1,000 ML with SODIUM BICARB (1 MEQ/ML) 100 ML IV SCH (02:48)
[2018-06-19] MEDS: HYDROcodone/APAP 10-325MG 1 EACH TAB PO PRN ×2 (03:28→09:34)
[2018-06-19] MEDS: SODIUM CHLORIDE 0.9% 1,000 ML IV SCH (04:30)
[2018-06-19 09:20] LABS: Basophils % (A) 0 %; Eosinophils # (A) 0.1 k/uL (0-0.7); Eosinophils % (A) 1 %; HCT 26.4 % (39.0-53.0); HGB 8.8 gm/dL (13.0-17.5); Lymphocytes # (A) 1.1 k/uL (1.0-4.8); Lymphocytes % (A) 14 %; MCH 32.5 pg (25.0-35.0); MCHC 33.3 g/dL (31.0-37.0); MCV 97.6 fL (80.0-100.0); Mean Platelet Volume 6.8; Monocytes # (A) 0.4 k/uL (0-1.0); Monocytes % (A) 5 %; Neutrophils % (A) 78 %; Platelet Count 325 k/uL (150-450); RDW 13.1 % (11.5-15.5); WBC 7.7 k/uL (3.8-10.6)
[2018-06-19] MEDS: ENOXAPARIN 40 MG/0.4 ML SYRINGE SQ SCH (09:24)
[2018-06-19] MEDS: NICOTINE 14MG/24HR PATCH TRANSDERM SCH (09:24)
[2018-06-19] MEDS: traMADol 50 MG TAB PO SCH (09:24)
[2018-06-19] MEDS: PANTOPRAZOLE 40 MG TABLET PO SCH (09:25)
[2018-06-19 09:27] LABS: ALT 88 U/L (21-72); AST 84 U/L (17-59); Alkaline Phosphatase 151 U/L (38-126); Anion Gap 7 mmol/L; Blood Urea Nitrogen 10 mg/dL (9-20); Carbon Dioxide 29 mmol/L (22-30); Chloride 99 mmol/L (98-107); Creatine Kinase 783 U/L (55-170); Glucose 176 mg/dL (74-99); Potassium 4.9 mmol/L (3.5-5.1); Sodium 135 mmol/L (137-145); Total Protein 5.4 g/dL (6.3-8.2)
[2018-06-19 10:07] VITALS: BP 135/67; PULSE 109; RESP 18; TEMP 98.3
--- NOTE | 2018-06-19 11:41 | P.PN ---
Subjective Progress Note Date: 06/19/18 Principal diagnosis: Status post intramedullary nail right intertrochanteric femur fracture Patient evaluated at bedside today, resting comfortably. Patient's knee pain has improved.. Denies any chest pain or shortness of breath. Objective - Vital Signs Vital signs: Vital Signs Temp 98.3 F 06/19/18 09:24 Pulse 109 H 06/19/18 10:11 Resp 18 06/19/18 10:11 BP 135/67 06/19/18 09:24 Pulse Ox 98 06/19/18 09:24 Intake & Output 06/18/18 06/19/18 06/19/18 18:59 06:59 18:59 Output Total 475 1200 Balance -475 -1200 Output: Urine 475 1200 Other: Voiding Method Urinal Toilet Toilet Urinal Urinal # Voids 2 3 - Exam Right lower extremity: Incision is clean, dry, and intact. [place] are in good position There is minimal soft tissue swelling and ecchymosis surrounding the medial and lateral aspects of the incision. Calf is soft, no tenderness with palpation. Plantar flexion, dorsiflexion, EHL, FHL are intact. Sensory exam to light touch throughout the extremity is intact, dorsal pedis pulses 2+. Effusion is much improved, no ecchymosis or soft tissue swelling. - Labs CBC & Chem 7: 06/19/18 08:15 06/19/18 08:15 Labs: Abnormal Lab Results - Last 24 Hours (Table) 06/18/18 06/19/18 06/19/18 Range/Units 07:34 08:15 08:15 RBC 2.70 L (4.30-5.90) m/uL Hgb 8.8 L (13.0-17.5) gm/dL Hct 26.4 L (39.0-53.0) % Sodium 135 L (137-145) mmol/L Glucose 176 H (74-99) mg/dL Uric Acid 2.3 L (3.5-8.5) mg/dL AST 84 H (17-59) U/L ALT 88 H (21-72) U/L Alkaline Phosphatase 151 H (38-126) U/L Creatine Kinase 783 H (55-170) U/L Total Protein 5.4 L (6.3-8.2) g/dL Albumin 3.0 L (3.5-5.0) g/dL Assessment and Plan Plan: Assessment: Postop day #4 status post intramedullary nail right intertrochanteric femur fracture Right knee effusion Right knee osteoarthritis Acute blood loss anemia, expected surgical outcome Plan: Pain control, will resume [place] 10 mg/325 mg GI and DVT prophylaxis, aspirin 81 mg twice a day Daily physical therapy after discharge Weight-bear as tolerated with walker Medical recommendations Ferrous sulfate 325 mg twice a day after discharge Discharge planning: Patient will be discharged to rehab today Time with Patient: Less than 30
--- NOTE | 2018-06-19 11:46 | P.DS ---
Providers Date of admission: 06/14/18 14:20 Expected date of discharge: 06/19/18 Attending physician: Harjit Baker Consults: 06/14/18 14:00 Consult Physician Stat Consulting Provider: Jet Oliver Consult Reason/Comments: Rhabdomyolysis, Surgical clearance Do you want consulting provider notified?: Yes 06/14/18 15:08 Consult Physician Urgent Consulting Provider: Clau Wu Consult Reason/Comments: pre-op, elevated troponin Do you want consulting provider notified?: Yes 06/14/18 17:31 Consult Physician Routine Consulting Provider: Harjit Baker Consult Reason/Comments: hip fracture Do you want consulting provider notified?: Yes Primary care physician: [place] Hospital Course: Date of admission: 06/14/2018 Date of discharge: 06/19/2018 Admission diagnosis: Displaced right intertrochanteric femur fracture Discharge diagnosis: Status post intramedullary nailing right intertrochanteric femur fracture Attending physician: Dr. Baker Surgical procedures: Intramedullary nailing right intertrochanteric femur fracture Brief history: Patient is a 68-year-old male with a history of a recent fall while attempting to get his mail. Patient was brought to [facility], imaging test demonstrated a displaced right intertrochanteric femur fracture. She was admitted under our care for further management. Proper consults were placed for other medical specialties. Hospital course: Details of patient's surgery can be found in operative report. Patient tolerated the procedure well and was subsequently transported to orthopedic floor. Patient's orthopeidc and medical care was provided daily. Patient had daily laboratory tests performed for evaluation of overall blood counts. Patient had daily physical therapy to include strengthening range of motion as well as education with walker ambulation. Patient was treated with Lovenox for their postoperative DVT prophylaxis during their inpatient stay. Patient was noted to have a relatively uneventful postoperative course. Patient reported satisfactory pain control with oral pain medications by postoperative day 0. Patient showed satisfactory progress with physical therapy. Patient moved steadily through the program and had no difficulty meeting the goals by postoperative day 4. Given patient's otherwise satisfactory course and having met physical therapy goals, plan is to discharge patient rehab on postoperative day 4. Discharge condition/disposition: Patient will be discharged rehab in stable condition. Discharge medications: Instructions are given on resumption of patient's normal daily medications per primary care recommendation, in addition patient will be prescribed [place] 10 mg/325 mg, Colace 100 mg, ferrous sulfate 325 mg, aspirin 81 mg. Discharge instructions: 1. Wound care and infection precautions, keep incision dry and covered while showering, no lotions, creams, moisturizers. No soaking, tubs, pools, hottubs. Do not scrub over the incision. 2. Weight-bear as tolerated with walker / cane until follow-up. 3. Ice and elevate when necessary. Do not exceed 20 minutes per hour with ice pack. 4. Utilize compression sleeve until seen at first follow up appointment. 5. Visiting nursing care. 6. Home physical therapy. 7. Pain meds and anticoagulants per prescription. 8. Pain medication has potential to cause constipation. Increase oral fluid and fiber intake. Contact primary care provider if you have not had a bowel movement within 48 hours after discharge 9. No anti-inflammatory medication until discussed at first post operative visit, this including Motrin, Aleve, Mobic, Diclofenac. 10. Follow up in office at 2 weeks postop with Tin Sauceda PA-C 11. Follow up with your primary care doctor 7-10 days after discharge. 12. Contact [facility] with any questions, . Procedures: Closed reduction with insertion intramedullary nail of right intertrochanteric femur fracture Patient Condition at Discharge: Fair Plan - Discharge Summary Discharge Rx Participant: No New Discharge Prescriptions: New Aspirin [Adult Low Dose Aspirin EC] 81 mg PO BID #60 tablet. Docgibrante [Colace] 100 mg PO DAILY #30 capsule Hydrocodone/Acetaminophen [[place]mson 10-325] 1 - 2 each PO Q6H PRN #40 tab PRN Reason: Pain Ferrous Sulfate [Iron] 325 mg PO BID #60 tablet Discharge Medication List Aspirin [Adult Low Dose Aspirin EC] 81 mg PO BID #60 tablet. 06/19/18 [Rx] Docusate [Colace] 100 mg PO DAILY #30 capsule 06/19/18 [Rx] Ferrous Sulfate [Iron] 325 mg PO BID #60 tablet 06/19/18 [Rx] Hydrocodone/Acetaminophen [[place]mson 10-325] 1 - 2 each PO Q6H PRN #40 tab 06/19/18 [Rx] Follow up Appointment(s)/Referral(s): Andi calvo Elizabeth, [NON-STAFF] - As Needed Bob Jackson DO [Primary Care Provider] - 1-2 days David Sauceda PAC [PHYSICIAN CANDY ATTENDANT] - 2 Weeks Activity/Diet/Wound Care/Special Instructions: Orthopedic Discharge Instructions: 1. Wound care and infection precautions, keep incision dry and covered while showering, no lotions, creams, moisturizers. No soaking, pools, hot tubs. Do not scrub over incision. 2. Weight-bear as tolerated with walker / cane until follow-up. 3. Ice and elevate when necessary. Do not exceed 20 minutes per hour with ice pack. 4. Utilize compression sleeve until seen at first follow up appointment. 5. Pain meds and anticoagulants per prescription. 6. Pain medication has potential to cause constipation. Increase oral fluid and fiber intake. Contact primary care provider if you have not had a bowel movement within 48 hours after discharge. 7. No anti-inflammatory medication until discussed at first post operative visit, this including Motrin, Aleve, Mobic, Diclofenac. 8. Follow up in office at 2 weeks postop with Tin Sauceda PA-C 9. Follow up with your primary care doctor 7-10 days after discharge. 10. Contact [facility] with any questions, . Discharge Disposition: TRANSFER TO SNF/ECF
--- NOTE | 2018-06-19 18:19 | PN ---
PROGRESS NOTE DATE OF SERVICE: 06/19/2018 68-year-old gentleman who was admitted with a fall and right hip fracture is improving significantly. The patient had rhabdomyolysis, which is improving. The patient also had right knee swelling. No chest pain. No palpitations. No fever. On exam, alert and oriented x3. Pulse is 109, blood pressure 135/67, respiration 18, temperature 98.3, pulse ox 98% on room air. HEENT: Conjunctivae normal. NECK: No jugular venous distention. CARDIOVASCULAR SYSTEM: S1, S2 muffled. RESPIRATORY SYSTEM: Breath sounds diminished at the bases. No rhonchi. No crackles. ABDOMEN: Soft, non-tender. No mass palpable. LEGS: No edema. No swelling. NERVOUS SYSTEM: No focal deficit. Labs at this time show WBC 7.7, hemoglobin 8.8, sodium 135, potassium 4.9. CK is 783. ASSESSMENT: 1. Fall and right hip fracture, status post intertrochanteric intramedullary nailing of right hip fracture. 2. Fever, improved. 3. Acute rhabdomyolysis. 4. Right knee swelling. 5. Troponin 0.141, indeterminant, possibly secondary to rhabdomyolysis. 6. Increased AST. 7. Increased creatine kinase. 8. Increased white count, possibly reactive, improving. RECOMMENDATIONS AND DISCUSSION: I recommend to continue current medications, continue with the monitoring, symptomatic treatment. Repeat labs. Otherwise, the patient is improving significantly. Continue with PT/OT evaluation. Possible ECF rehab. Resume the medications. Continue with the DVT prophylaxis. Closely follow with Orthopedic Surgery. Further recommendations to follow. MMODL / IJN: [id number] /
== END 2018-06-19 13:56 | DRG 481 ==
LOC: EC 12:08 → 4SSUR 14:20 → 3SCARD 14:36 → 4SSUR 06-15 20:32
PROVIDERS: ADMIT Orthopaedic Surgery; ATTEND Orthopaedic Surgery
PROC: 0QS606Z Reposition Right Upper Femur with Intramedullary Internal Fixation Device, Open Approach (ICD-10-PCS; principal; 2018-06-15 07:30)
PROC: 3E0U33Z Introduction of Anti-inflammatory into Joints, Percutaneous Approach (ICD-10-PCS; 2018-06-18)
PROC: 3E0U3BZ Introduction of Anesthetic Agent into Joints, Percutaneous Approach (ICD-10-PCS; 2018-06-18)
PROC: 0S9C3ZX Drainage of Right Knee Joint, Percutaneous Approach, Diagnostic (ICD-10-PCS; 2018-06-18)
DX: S72.141A Displaced intertrochanteric fracture of right femur, initial encounter for closed fracture (principal); D62 Acute posthemorrhagic anemia; M62.82 Rhabdomyolysis; W00.0XXA Fall on same level due to ice and snow, initial encounter; Z82.3 Family history of stroke; F17.200 Nicotine dependence, unspecified, uncomplicated; M17.11 Unilateral primary osteoarthritis, right knee; N19 Unspecified kidney failure; Z79.891 Long term (current) use of opiate analgesic; M25.461 Effusion, right knee
CPT/HCPCS: 36415; 71045; 73502; 80053; 81001; 82550; 82553; 84484; 84550; 85025; 85610; 85730; 86850; 86900; 86901; 93005; 93306; 96361; 96374; 96375; 96376; 99285

== ENCOUNTER 2024-11-15 19:54 | Inpatient (IN) | payer MEDICARE ==
--- NOTE | 2024-11-15 19:57 | ED ---
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 Fall Witnessed: no Place Fall Occurred: home Loss of Consciousness: none Prolonged Down Time?: no Symptoms Prior to Fall: none Location - Extremities: Left: Thigh Severity: severe Severity scale (1-10): 10 Context: tripped/slipped Associated Symptoms: denies - Related Data Home Medications Medication Instructions Recorded Confirmed Citalopram Hydrobromide [CeleXA] 40 mg PO DAILY 11/16/24 11/16/24 Fish Oil/Dha/Epa [Fish Oil 1,200 1 cap PO DAILY 11/16/24 11/16/24 mg Fish Oil] Hydrocodone/Acetaminophen [Lind 2 tab PO Q4H PRN 11/16/24 11/16/24 10-325] Vit C/E/Zn/Coppr/Lutein/Zeaxan 1 cap PO DAILY 11/16/24 11/16/24 [Preservision Areds 2 Softgel] Vitamin B (Unknown) 1 dose PO DAILY 11/16/24 11/16/24 buPROPion XL [Wellbutrin XL] 300 mg PO DAILY 11/16/24 11/16/24 Previous Rx's Medication Instructions Recorded Aspirin 81 mg PO BID #60 tab 11/18/24 Docusate [Colace] 100 mg PO DAILY cap 11/18/24 Ferrous Sulfate [Iron (65 MG 325 mg PO BID tab 11/18/24 Elemental)] Ipratropium-Albuterol Nebulize 3 ml INHALATION RT-QID PRN each 11/18/24 [Duoneb 0.5 mg-3 mg/3 ml Soln] Magnesium Hydroxide [Milk of 2,400 mg PO DAILY PRN ml 11/18/24 Magnesia] Nicotine 14Mg/24Hr Patch [Habitrol] 1 patch TRANSDERM DAILY patch 11/18/24 Pantoprazole [Protonix] 40 mg PO AC-BRKFST tab 11/18/24 Sennosides-Docusate Sodium 2 tab PO DAILY #30 tablet 11/18/24 [Senokot-S] Tamsulosin [Flomax] 0.4 mg PO PC-BRKFST cap 11/18/24 oxyCODONE-APAP 5-325MG [Percocet 1 tab PO Q4HR PRN 3 Days #30 tab 11/18/24 5-325 mg] Allergies Allergy/AdvReac Type Severity Reaction Status Date / Time fentanyl AdvReac Confusion Verified 11/15/24 20:06 Review of Systems ROS Statement: Those systems with pertinent positive or pertinent negative responses have been documented in the HPI. ROS Other: All systems not noted in ROS Statement are negative. Past Medical History Past Medical History: No Reported History History of Any Multi-Drug Resistant Organisms: None Reported Past Surgical History: Orthopedic Surgery Additional Past Surgical History / Comment(s): tonsilectomy, rotator cuff on 2001 Past Anesthesia/Blood Transfusion Reactions: No Reported Reaction Past Psychological History: No Psychological Hx Reported Past Alcohol Use History: None Reported Past Drug Use History: None Reported - Past Family History Father Family Medical History: Coronary Artery Disease (CAD) General Exam General appearance: alert, in no apparent distress Head exam: Present: atraumatic, normocephalic, normal inspection Eye exam: Present: normal appearance, PERRL, EOMI. Absent: scleral icterus, conjunctival injection, periorbital swelling ENT exam: Present: normal exam, mucous membranes moist Neck exam: Present: normal inspection. Absent: tenderness, meningismus, lymphadenopathy Respiratory exam: Present: normal lung sounds bilaterally. Absent: respiratory distress, wheezes, rales, rhonchi, stridor Cardiovascular Exam: Present: regular rate, normal rhythm, normal heart sounds. Absent: systolic murmur, diastolic murmur, rubs, gallop, clicks GI/Abdominal exam: Present: soft, normal bowel sounds. Absent: distended, tenderness, guarding, rebound, rigid Extremities exam: Present: normal inspection, full ROM, normal capillary refill. Absent: tenderness, pedal edema, joint swelling, calf tenderness Back exam: Present: normal inspection Neurological exam: Present: alert, oriented X3, CN II-XII intact Psychiatric exam: Present: normal affect, normal mood Skin exam: Present: warm, dry, intact, normal color. Absent: rash Course Vital Signs 11/15/24 11/15/24 11/16/24 19:56 23:31 00:58 Temperature 98.0 F 98.1 F Pulse Rate 77 80 74 Respiratory 18 18 16 Rate Blood Pressure 177/93 114/60 96/56 O2 Sat by Pulse 98 98 98 Oximetry - Reevaluation(s) Reevaluation #1: 11/15/24 21:15 Medical records reviewed Reevaluation #2: 11/15/24 22:41 patients pain is controlled Reevaluation #3: 11/15/24 22:41 patient informed of results and question answered Reevaluation #4: Was pt. sent in by a medical professional or institution (, [facility], EYELET PUNCH OPERATOR, urgent care, hospital, or [facility]...) When possible be specific @ -no Did you speak to anyone other than the patient for history (EMS, parent, family, police, friend...)? What history was obtained from this source @ -no Did you review nursing and triage notes (agree or disagree)? Why? @ -agree Are old charts reviewed (outside hosp., previous admission, EMS record, old EKG, old radiological studies, urgent care reports/EKG's, [facility] records)? Report findings @ -yes Differential Diagnosis (chest pain, altered mental status, abdominal pain women, abdominal pain men, vaginal bleeding, weakness, fever, dyspnea, syncope, headache, dizziness, GI bleed, back pain, seizure, CVA, palpatations, mental health, musculoskeletal)? @ -prior EKG interpreted by me (3pts min.). @ -yes X-rays interpreted by me (1pt min.). @ -yes positive left hip fracture CT interpreted by me (1pt min.). @ -no U/S interpreted by me (1pt. min.). @ -no What testing was considered but not performed or refused? (CT, X-rays, U/S, labs)? Why? @ -none What meds were considered but not given or refused? Why? @ -none Did you discuss the management of the patient with other professionals (professionals i.e. , [facility], EYELET PUNCH OPERATOR, lab, RT, psych nurse, social media content specialist, heavy duty diesel mechanic, teacher, chief financial officer, case making machine operator)? Give summary @ -no Was smoking cessation discussed for >3mins.? @ -no Was critical care preformed (if so, how long)? @ -no Were there social determinants of health that impacted care today? How? (Homelessness, low income, unemployed, alcoholism, drug addiction, transportation, low edu. Level, literacy, decrease access to med. care, [place] [facility], rehab)? @ -none Was there de-escalation of care discussed even if they declined (Discuss DNR or withdrawal of care, Hospice)? DNR status @ -no What co-morbidities impacted this encounter? (DM, HTN, Smoking, COPD, CAD, Cancer, CVA, ARF, Chemo, Hep., AIDS, mental health diagnosis, sleep apnea, morbid obesity)? @ -none Was patient admitted / discharged? Hospital course, mention meds given and route, prescriptions, significant lab abnormalities, going to OR and other pertinent info. @ - 74 male to the ER for evaluation patient has fall with left hip fracture patient admitted for orthopedic evaluation and treatment Admitted Undiagnosed new problem with uncertain prognosis? @ -no Drug Therapy requiring intensive monitoring for toxicity (Heparin, Nitro, Insulin, Cardizem)? @ -no Were any procedures done? @ -no Diagnosis/symptom? @ -Left hip fracture mechanical fall Acute, or Chronic, or Acute on Chronic? @ -Acute Uncomplicated (without systemic symptoms) or Complicated (systemic symptoms)? @ -Complicated Side effects of treatment? @ -no Exacerbation, Progression, or Severe Exacerbation? @ -exacerbation Poses a threat to life or bodily function? How? (Chest pain, USA, OR, pneumonia, PE, COPD, DKA, ARF, appy, cholecystitis, CVA, Diverticulitis, Homicidal, Suicidal, threat to staff... and all critical care pts) @ -yes extremes of age Reevaluation #5: Differential Weakness: Hypoglycemia, shock, sepsis, hyponatremia, anemia, infection, OR, ETOH, adverse medicine reaction, overdose, stroke, this is not meant to be an all-inclusive list. - Consultations Consultation #1: spoke with ortho who will admit this patient Medical Decision Making - Medical Decision Making 74 male to the ER for evaluation patient has fall with left hip fracture patient admitted for orthopedic evaluation and treatment - Lab Data Result diagrams: 11/18/24 04:19 11/18/24 04:19 Lab Results 11/15/24 11/15/24 11/15/24 Range/Units 20:36 20:36 20:36 WBC 10.68 H (4.50-10.00) 10*3/uL RBC 4.23 L (4.40-5.60) 10*6/uL Hgb 13.1 (13.0-17.0) g/dL Hct 38.6 L (39.6-50.0) % MCV 91.3 (80.0-97.0) fL MCH 31.0 (27.0-32.0) pg MCHC 33.9 (32.0-37.0) g/dL Plt Count 299 (140-440) 10*3/uL MPV 9.2 L (9.5-12.2) fL Immature Gran % (Auto) 0.2 % Neutrophils % 74.2 % Lymphocytes % 15.1 % Monocytes % 7.4 % Eosinophils % 1.7 % Basophils % 1.4 % Immature Gran # 0.02 (0.00-0.04) 10*3/uL Neutrophils # 7.93 H (1.80-7.70) 10*3/uL Lymphocytes # 1.61 (0.90-5.00) 10*3/uL Monocytes # 0.79 (0.20-1.00) 10*3/uL Eosinophils # 0.18 (0.04-0.35) 10*3/uL Basophils # 0.15 H (0.00-0.10) 10*3/uL PT 10.8 (10.0-12.5) sec INR 1.0 (<1.2) APTT 23.1 (22.0-30.0) sec Sodium 138 (137-145) mmol/L Potassium 4.1 (3.5-5.1) mmol/L Chloride 106 (98-107) mmol/L Carbon Dioxide 25 (22-30) mmol/L Anion Gap 7 mmol/L BUN 14 (9-20) mg/dL Creatinine 0.85 (0.66-1.25) mg/dL Est GFR (CKD-EPI)AfAm >90 (>60 ml/min/1.73 sqM) Est GFR (CKD-EPI)NonAf 85 (>60 ml/min/1.73 sqM) Glucose 88 (74-99) mg/dL Plasma Lactic Acid Isra (0.7-2.0) mmol/L Calcium 9.3 (8.4-10.2) mg/dL Phosphorus 2.9 (2.5-4.5) mg/dL Magnesium 2.0 (1.6-2.3) mg/dL Total Bilirubin 0.6 (0.2-1.3) mg/dL AST 20 (17-59) U/L ALT 13 (4-49) U/L Alkaline Phosphatase 74 (38-126) U/L Troponin I (0.000-0.034) ng/mL NT-Pro-B Natriuret Pep 630 pg/mL Total Protein 6.8 (6.3-8.2) g/dL Albumin 4.4 (3.5-5.0) g/dL 11/15/24 11/15/24 Range/Units 20:36 20:36 WBC (4.50-10.00) 10*3/uL RBC (4.40-5.60) 10*6/uL Hgb (13.0-17.0) g/dL Hct (39.6-50.0) % MCV (80.0-97.0) fL MCH (27.0-32.0) pg MCHC (32.0-37.0) g/dL Plt Count (140-440) 10*3/uL MPV (9.5-12.2) fL Immature Gran % (Auto) % Neutrophils % % Lymphocytes % % Monocytes % % Eosinophils % % Basophils % % Immature Gran # (0.00-0.04) 10*3/uL Neutrophils # (1.80-7.70) 10*3/uL Lymphocytes # (0.90-5.00) 10*3/uL Monocytes # (0.20-1.00) 10*3/uL Eosinophils # (0.04-0.35) 10*3/uL Basophils # (0.00-0.10) 10*3/uL PT (10.0-12.5) sec INR (<1.2) APTT (22.0-30.0) sec Sodium (137-145) mmol/L Potassium (3.5-5.1) mmol/L Chloride (98-107) mmol/L Carbon Dioxide (22-30) mmol/L Anion Gap mmol/L BUN (9-20) mg/dL Creatinine (0.66-1.25) mg/dL Est GFR (CKD-EPI)AfAm (>60 ml/min/1.73 sqM) Est GFR (CKD-EPI)NonAf (>60 ml/min/1.73 sqM) Glucose (74-99) mg/dL Plasma Lactic Acid Isra 0.6 L (0.7-2.0) mmol/L Calcium (8.4-10.2) mg/dL Phosphorus (2.5-4.5) mg/dL Magnesium (1.6-2.3) mg/dL Total Bilirubin (0.2-1.3) mg/dL AST (17-59) U/L ALT (4-49) U/L Alkaline Phosphatase (38-126) U/L Troponin I <0.012 (0.000-0.034) ng/mL NT-Pro-B Natriuret Pep pg/mL Total Protein (6.3-8.2) g/dL Albumin (3.5-5.0) g/dL - EKG Data -: EKG Interpreted by Me (EKG is sinus 74 KS 203 QRS 114 QTc 404) - Radiology Data Radiology results: report reviewed (X-ray with x-ray left hip positive IT fracture), image reviewed Disposition Clinical Impression: Fall, Hip fracture, left Disposition: ADMITTED IP TO THIS HOSP Condition: Stable Is patient prescribed a controlled substance at d/c from ED?: No Time of Disposition: 22:40
[2024-11-15] MEDS: ONDANSETRON 4 MG/2 ML VIAL IVP STA (20:29)
[2024-11-15] MEDS: MORPHINE SULFATE 4 MG/ML SYRINGE IV STA (20:29)
[2024-11-15] MEDS: SODIUM CHLORIDE 0.9% 1,000 ML IV SCH ×2 (20:29→23:04)
[2024-11-15 20:58] LABS: Basophils # (A) 0.15 10*3/uL (0.00-0.10); Basophils % (A) 1.4 %; Eosinophils # (A) 0.18 10*3/uL (0.04-0.35); Eosinophils % (A) 1.7 %; HCT 38.6 % (39.6-50.0); HGB 13.1 g/dL (13.0-17.0); Lymphocytes # (A) 1.61 10*3/uL (0.90-5.00); Lymphocytes % (A) 15.1 %; MCH 31.0 pg (27.0-32.0); MCHC 33.9 g/dL (32.0-37.0); MCV 91.3 fL (80.0-97.0); Monocytes # (A) 0.79 10*3/uL (0.20-1.00); Monocytes % (A) 7.4 %; Neutrophils # (A) 7.93 10*3/uL (1.80-7.70); Neutrophils % (A) 74.2 %; Platelet Count 299 10*3/uL (140-440); RBC 4.23 10*6/uL (4.40-5.60); RDW 13.0 % (11.5-14.5); WBC 10.68 10*3/uL (4.50-10.00)
[2024-11-15 21:12] LABS: INR 1.0 (<1.2); Partial Thromboplastin Time 23.1 sec (22.0-30.0); Prothrombin Time 10.8 sec (10.0-12.5)
[2024-11-15 21:16] LABS: ALT 13 U/L (4-49); AST 20 U/L (17-59); African American GFR (CKD) >90 (>60 ml/min/1.73 sqM); Albumin 4.4 g/dL (3.5-5.0); Alkaline Phosphatase 74 U/L (38-126); Anion Gap 7 mmol/L; Blood Urea Nitrogen 14 mg/dL (9-20); Calcium 9.3 mg/dL (8.4-10.2); Carbon Dioxide 25 mmol/L (22-30); Chloride 106 mmol/L (98-107); Glucose 88 mg/dL (74-99); Magnesium 2.0 mg/dL (1.6-2.3); Non-African American GFR(CKD) 85 (>60 ml/min/1.73 sqM); Potassium 4.1 mmol/L (3.5-5.1); Sodium 138 mmol/L (137-145); Total Protein 6.8 g/dL (6.3-8.2)
[2024-11-15 21:24] LABS: NT-Pro-B-Type Natriuretic Pept 630 pg/mL
--- NOTE | 2024-11-15 21:30 | XR ---
EXAMINATION TYPE: XR chest 1V portable DATE OF EXAM: 11/15/2024 9:26 PM COMPARISON: Chest radiographs from 06/16/2018 TECHNIQUE: XR chest 1V portable Portable AP radiograph of the chest. CLINICAL INDICATION:Male, 74 years old with history of pain; FINDINGS: Lungs/Pleura: There is no evidence of pleural effusion, focal consolidation, or pneumothorax. Pulmonary vascularity: Unremarkable. Heart/mediastinum: Cardiomediastinal silhouette is unremarkable. Musculoskeletal: No acute osseous pathology. Surgical anchor within the right humeral head. IMPRESSION: No acute cardiopulmonary disease/process. [facility], , 11/15/2024 9:28 PM
--- NOTE | 2024-11-15 21:43 | XR ---
EXAMINATION TYPE: XR pelvis AP view, XR femur LT DATE OF EXAM: 11/15/2024 9:30 PM INDICATION: Patient age:Male; 74 years old; Reason for study: pain; PHH. pain COMPARISON: Right hip fluoroscopic images 06/15/2018, right hip/pelvic radiographs 06/14/2018 TECHNIQUE: The pelvis was examined in a single projection. The left femur was examined in frontal and lateral projections. FINDINGS: Postsurgical changes with fixation liliane and screws involving the proximal right femur from p rior fracture. Hardware appears intact. Acute mildly displaced left proximal femur intratrochanteric fracture. No dislocation. Multilevel degenerative changes of the lower lumbar spine. No soft tissue s welling. IMPRESSION: 1. Acute mildly displaced left proximal femur intratrochanteric fracture. 2. Fixation changes involving the right proximal femur. Hardware appears intact. [facility], , 11/15/2024 9:41 PM
[2024-11-15] MEDS ORDERED: NALOXONE 0.4 MG/ML 1 ML VIAL IV PRN (22:39)
[2024-11-15] MEDS: HYDROmorphone 1 MG/ML 1 ML SYRINGE IVP STA (22:59)
[2024-11-16] MEDS: HYDROmorphone 1 MG/ML 1 ML SYRINGE IVP PRN (02:05)
[2024-11-16 03:31] LABS: Basophils # (A) 0.12 10*3/uL (0.00-0.10); Basophils % (A) 1.3 %; Eosinophils # (A) 0.27 10*3/uL (0.04-0.35); Eosinophils % (A) 3.0 %; HCT 33.3 % (39.6-50.0); HGB 11.3 g/dL (13.0-17.0); Lymphocytes # (A) 1.46 10*3/uL (0.90-5.00); Lymphocytes % (A) 16.4 %; MCH 31.7 pg (27.0-32.0); MCHC 33.9 g/dL (32.0-37.0); MCV 93.5 fL (80.0-97.0); Monocytes # (A) 1.10 10*3/uL (0.20-1.00); Monocytes % (A) 12.3 %; Neutrophils # (A) 5.95 10*3/uL (1.80-7.70); Neutrophils % (A) 66.8 %; Platelet Count 265 10*3/uL (140-440); RBC 3.56 10*6/uL (4.40-5.60); RDW 12.9 % (11.5-14.5); WBC 8.92 10*3/uL (4.50-10.00)
[2024-11-16 03:44] LABS: ALT 11 U/L (4-49); AST 16 U/L (17-59); African American GFR (CKD) >90 (>60 ml/min/1.73 sqM); Albumin 3.4 g/dL (3.5-5.0); Alkaline Phosphatase 61 U/L (38-126); Anion Gap 8 mmol/L; Blood Urea Nitrogen 16 mg/dL (9-20); Calcium 9.2 mg/dL (8.4-10.2); Carbon Dioxide 24 mmol/L (22-30); Chloride 104 mmol/L (98-107); Glucose 94 mg/dL (74-99); Magnesium 1.9 mg/dL (1.6-2.3); Non-African American GFR(CKD) 78 (>60 ml/min/1.73 sqM); Potassium 4.2 mmol/L (3.5-5.1); Sodium 136 mmol/L (137-145); Total Protein 5.6 g/dL (6.3-8.2)
[2024-11-16] MEDS ORDERED: IPRATROPIUM-ALBUTEROL 3 ML NEB INHALATION PRN (05:08)
[2024-11-16] MEDS: HEPARIN SODIUM,PORCINE 5,000 UNIT/ML 1 ML VIAL SQ SCH (05:36)
--- NOTE | 2024-11-16 05:46 | P.CON ---
Consult Note - . Consult date: 11/16/24 Assessment/Plan:: Patient is a 74-year-old male with no significant past medical history comes into the ED for further evaluation of left hip injury status post mechanical fall. We were consulted for medical management of the patient. Pelvis and femur x-ray shows acute displaced left proximal femur intertrochanteric fracture. Patient stated that he tripped over the steps at his home while he was mopping the floor and fell on concrete. Patient denied chest pain, shortness of breath, change in vision, abdominal pain, muscle weakness, numbness or tingling, fever or chills. Patient is positive for left hip pain with no sensory loss. Denied taking blood thinners. Imaging Pelvis / femur x-ray 1. Acute mildly displaced left proximal femur intertrochanteric fracture. 2. Fixation changes involving the right proximal femur. Hardware appears intac t Labs WBC 8.92, Hgb 11.3, HCT 33.3, plt count 265 Na 136, K 4.2, Cl 104, CO2 24, BUN 16, Cr 0.95 Vitals: T90 8F, HR 77, RR 18, BP 177/93, O2 sat 98% on RA ED documentation reviewed. Review of systems: Pertinent positives and negatives as discussed in HPI, a complete review of systems was performed and all other systems are negative. Physical examination: Vital signs reviewed General: non toxic, no distress, appears at stated age Derm: no unusual rashes/lesions, warm Head: atraumatic, normocephalic Eyes: EOMI, anicteric sclera ENT: Nose and ears atraumatic Neck: supple, no restriction with head movement Mouth: no lip lesion Cardiovascular: S1S2 reg, no murmur, positive dorsalis pedis pulse bilateral, no edema Lungs: Normal breathing effort, no rhonchi, no rales, no accessory muscle use Abdominal: soft, nontender to palpation, no guarding Ext: muscle strength 5 out of 5 in upper and right lower extremities grossly, unassessed muscle strength in left lower extremity due to injury, no gross muscle atrophy Neuro: no gross focal neuro deficits Psych: Alert, oriented to person, place, and time Assessment/Plan: left hip fracture secondary to mechanical fall pain control further management per ortho team keep npo after midnight clinical copd counseled to quit smoking , as smoking is a major cause of cardiovascular disease, cancer and early nicotine replacement therapy offered encourage to use IS perioperatively q1hr awake #. Pain managment per primary team #. Low NSQIP risk score for surgery - Pt can undergo surgery of hip fixation with low risk #. Former smoker but no history of COPD - Nicotine patch once daily DVT prophylaxis: Heparin sc tid 5000 units The patient is admitted with an anticipated less than 2 midnight stay for evaluation of left hip pain CODE STATUS: Full code Discussed with: Dr. King Anticipated discharge place: Home Ariel Mejia MD PGY-1 IM Dictation was produced using Cont[employer]+ dictation software. please excuse any gra mmatical, word or spelling errors. I have seen and evaluated the patient today. I Discussed the case with the resident and agree with the resident's findings I edited the assessment and plan as necessary as documented in the resident's note. 74 year old male with no significant past medical history, denies any history of Congestive heart failure, coronary artery disease, chronic kidney disease, stroke, or Diabetes mellitus. Denies any active cardiac symptoms of heart failure, arrhythmia, syncope, heart murmurs or any recent Myocardial infarction. Patient is functional (prior to this recent injury) at METS>4. able to climb 2 flight of stairs with no SOB He is going for left hip fracture repair, this is of intermediate perioperative cardiovascular risk; however he can proceed to surgery with acceptable risk without any modifiable risk factors at this time . this was discussed with the patient and verbalized understanding EKG reviewed , NSR , no acute ST changes labs reviewed unremarkable WBC 8.92, Hgb 11.3, HCT 33.3, plt count 265 Na 136, K 4.2, Cl 104, CO2 24, BUN 16, Cr 0.95 consider rapid transition to Bipap post extubation , due to suspected clinical COPD due to history of heavy smoking duonebs PRN for SOB supplemetnal oxygen keep oxygen sat >92% encourage using IS q1hr awake
[2024-11-16] MEDS ORDERED: ACETAMINOPHEN TAB 325 MG TAB PO PRN (09:16)
--- NOTE | 2024-11-16 09:24 | P.HPOR ---
History of Present Illness H&P Date: 11/16/24 Chief Complaint: fall, left hip pain Bryce is a 74 y/o male who presented to the ED after sustaining a fall at home yesterday, 11/15/2024. He was unable to get up and he called his caregiver who called EMS. The patient states he broke his right hip a few years ago and it was fixed at [facility]. Upon exam in the ED, x-rays were revealed and intertrochantric fracture on the left. He was admitted to orthopedics for further evaluation and care. Internal medicine has already seen the patient and cleared him for surgery. He does live alone but has a caregiver that checks on him frequently. The patient is status post right IT nail on 06/15/[address] Baker. Review of Systems Constitutional: Denies chills, Denies fatigue, Denies fever Cardiovascular: Denies chest pain, Denies shortness of breath Musculoskeletal: left: hip pain, hip stiffness, hip swelling Past Medical History Past Medical History: No Reported History History of Any Multi-Drug Resistant Organisms: None Reported Past Surgical History: Joint Replacement, Orthopedic Surgery Additional Past Surgical History / Comment(s): tonsilectomy, rotator cuff on 2001, right hip 2019 Past Anesthesia/Blood Transfusion Reactions: No Reported Reaction Past Psychological History: No Psychological Hx Reported Smoking Status: Current every day smoker Past Alcohol Use History: None Reported Past Drug Use History: None Reported - Past Family History Father Family Medical History: Coronary Artery Disease (CAD) Medications and Allergies Home Medications Medication Instructions Recorded Confirmed Type Citalopram Hydrobromide [CeleXA] 40 mg PO DAILY 11/16/24 11/16/24 History Fish Oil/Dha/Epa [Fish Oil 1,200 1 cap PO DAILY 11/16/24 11/16/24 History mg Fish Oil] Hydrocodone/Acetaminophen [Calvin 2 tab PO Q4H PRN 11/16/24 11/16/24 History 10-325] Vit C/E/Zn/Coppr/Lutein/Zeaxan 1 cap PO DAILY 11/16/24 11/16/24 History [Preservision Areds 2 Softgel] Vitamin B (Unknown) 1 dose PO DAILY 11/16/24 11/16/24 History buPROPion XL [Wellbutrin XL] 300 mg PO DAILY 11/16/24 11/16/24 History Allergies Allergy/AdvReac Type Severity Reaction Status Date / Time fentanyl AdvReac Confusion Verified 11/15/24 20:06 Physical Examination Osteopathic Statement: *. No significant issues noted on an osteopathic structural exam other than those noted in the History and Physical/Consult. The patient is a 74 year-old male in no acute distress. He is alert and oriented 3. The patient's head is normocephalic, atraumatic. No pain upon palpation to the cervical spine, no step-offs noted. Exam of the bilateral upper extremities reveal no obvious deformities or wounds. Exam of the right lower extremity reveals no deformity or wounds. No pain upon range of motion of the right leg. Exam of the left lower extremity reveals severe guarding to the left hip. There is pain to palpation to the lateral hip. There is pain to external and internal rotation of the left hip. Calf is soft and nontender. He is able to wiggle his toes. Circulatory status is intact. Results X-ray of the left hip and pelvis reveal a displaced intertrochantric fracture and post IT nail on the right side. - Labs Labs: Abnormal Lab Results - Last 24 Hours (Table) 11/15/24 11/15/24 11/16/24 Range/Units 20:36 20:36 02:45 WBC 10.68 H (4.50-10.00) 10*3/uL RBC 4.23 L 3.56 L (4.40-5.60) 10*6/uL Hgb 11.3 L (13.0-17.0) g/dL Hct 38.6 L 33.3 L (39.6-50.0) % MPV 9.2 L 9.4 L (9.5-12.2) fL Neutrophils # 7.93 H (1.80-7.70) 10*3/uL Monocytes # 1.10 H (0.20-1.00) 10*3/uL Basophils # 0.15 H 0.12 H (0.00-0.10) 10*3/uL Sodium (137-145) mmol/L Plasma Lactic Acid Isra 0.6 L (0.7-2.0) mmol/L AST (17-59) U/L Total Protein (6.3-8.2) g/dL Albumin (3.5-5.0) g/dL 11/16/24 Range/Units 02:45 WBC (4.50-10.00) 10*3/uL RBC (4.40-5.60) 10*6/uL Hgb (13.0-17.0) g/dL Hct (39.6-50.0) % MPV (9.5-12.2) fL Neutrophils # (1.80-7.70) 10*3/uL Monocytes # (0.20-1.00) 10*3/uL Basophils # (0.00-0.10) 10*3/uL Sodium 136 L (137-145) mmol/L Plasma Lactic Acid Isra (0.7-2.0) mmol/L AST 16 L (17-59) U/L Total Protein 5.6 L (6.3-8.2) g/dL Albumin 3.4 L (3.5-5.0) g/dL H & H 11/15/24 11/16/24 Range/Units 20:36 02:45 Hgb 13.1 11.3 L (13.0-17.0) g/dL Hct 38.6 L 33.3 L (39.6-50.0) % Coagulation 11/15/24 Range/Units 20:36 INR 1.0 (<1.2) Result Diagrams: 11/16/24 02:45 11/17/24 06:29 Assessment and Plan (1) Fall Current Visit: Yes Status: Acute Code(s): W19.XXXA - UNSPECIFIED FALL, INITIAL ENCOUNTER SNOMED Code(s): 5407990 (2) Hip fracture, left Current Visit: Yes Status: Acute Code(s): S72.002A - FRACTURE OF UNSP PART OF NECK OF LEFT FEMUR, INIT SNOMED Code(s): 710261676 Plan: The clinical and x-ray findings were discussed with the patient. The case was discussed with Dr. Malik. Treatment options were discussed and surgical intervent ion is recommended. We did check with [facility] to see if they would like to take the case but recommended we continue with our surgical plans since they are not on hospital call this week. We discussed the surgical plan as well as the expected postoperative course. Risks and benefits were reviewed including (but not limited to) the risks of infection, bleeding, blood clots, delayed or nonunion, anesthesia-related complications and possible need for additional surgery. Questions were invited and answered. The patient expressed understanding and wishes to proceed with surgery. The patient will be kept on bedrest. Continue PRN pain management. NPO today. She is scheduled for a closed reduction with insertion of long cephalomedullary nail of the left hip tomorrow afternoon. Internal medicine has cleared the patient for surgery. *Patient seen and examined. Agree with AP above. We'll plan for a nail today.
[2024-11-16] MEDS: NICOTINE 14MG/24HR PATCH TRANSDERM SCH (09:25)
[2024-11-16] MEDS: DOCUSATE 100 MG CAP PO SCH (09:44)
[2024-11-16] MEDS: FERROUS SULFATE 325 MG TAB PO SCH (09:44)
[2024-11-16] MEDS: PANTOPRAZOLE 40 MG TABLET PO SCH (09:52)
--- NOTE | 2024-11-16 13:47 | P.PN ---
Subjective Progress Note Date: 11/16/24 Hospital course: Patient is a pleasant 74-year-old male with a past medical history of GERD, iron deficiency anemia, and nicotine dependence. He presented to the hospital on 11/15/2024 via EMS after a trip and fall resulting in left hip pain. Upon arrival to our facility, patient underwent evaluation in the emergency department. Vital signs upon arrival show blood pressure 177/93, heart rate 77, respiratory rate 18, temp 98.2 F, SpO2 of 98% on room air. EKG completed showing normal sinus rhythm at 74 bpm. Chest x-ray completed negative for acute cardiopulmonary process. X-ray pelvis and left femur completed showing acute mildly displaced left proximal femoral intertrochanteric fracture with fixation changes involving the right proximal femur with hardware reported to be intact. Labs completed and reviewed. CBC showing leukocytosis with WBC count of 10.68. Coagulation profile normal findings. BMP unremarkable. Blood glucose 88. Lactic acid 0.6. Magnesium 2.0. Liver profile unremarkable. Troponin negative at less than 0.012 and proBNP 630. Patient admitted under orthopedic surgery team and we were consulted for medical clearance and medical management throughout hospitalization Physical exam: Patient seen and fully evaluated at bedside this morning. He continues to report moderate pain to left hip and lower leg. He denies having any numbness or tingling in his left lower extremity. He reports urinating without any difficulties. Patient denies having any headache, lightheadedness, dizziness, chest pain, palpitations, shortness of breath, nausea, vomiting, or any other complaints at this time. Vital signs reviewed and stable. General: Nontoxic, no distress and appears stated age. Derm: Skin warm and dry, normal coloration for ethnicity. Head: Atraumatic, normocephalic and symmetric. Eyes: EOM's intact, no lid lag, and anicteric sclera Mouth: no lip lesions, mucus membranes moist Cardiovascular: regular rate and rhythm with normal S1S2, no murmur, positive posterior tibial pulses bilaterally, and cap refill < 2 seconds. Lungs: Respirations even, regular, and unlabored on room air. Lungs CTA bilaterally, no rhonchi, no rales, no wheezing, and no accessory muscle usage. Abdominal: soft, nontender to palpation, no guarding, no appreciable organomegaly Ext: No gross muscle atrophy, no edema, no contractures. Station intact. Move ment of left lower extremity limited secondary to acute fracture and elevated on pillow at this time. Patient able to move left ankle and foot without difficulties, movement of left leg not assessed at this time secondary to acute fracture and need for immobilization. Neuro: Speech clear, face symmetrical and CN II-XII grossly intact with no noted focal neuro deficits Psych: Alert and oriented to person, place, time, and situation. Appropriate and pleasant affect. Assessment and Plan of Care: Acute dislocated left paroxysmal femoral intertrochanteric femur fracture -Patient is scheduled to undergo left hip ORIF with medullary nailing later today with Dr. Malik. -Management per primary admitting orthopedic surgery team including DVT prophylaxis, pain management, postoperative wound/dressing/drain care, and advancement of activity. -Continue pain management with Tylenol 650 mg every 6 hours as needed for mild pain, [place] 5/325 mg tablets every 4 hours as needed for moderate pain, and Dilaudid 1 mg IVP every 3 hours as needed for severe pain. -Maintain n.p.o. status until completion of surgical procedure, scheduled for later today. Acute blood loss anemia, secondary to femur fracture Initial hemoglobin 13.1 with repeat hemoglobin of 11.3. Acute blood loss secondary to acute femur fracture. Will continue to monitor closely with repeat a.m. labs and transfuse as needed for hemoglobin less than 7. Nicotine dependence with suspected underlying COPD Continue nicotine patch 14 mg daily Provide supplemental oxygen as needed to maintain SpO2 equal to or greater than 90%. Continue DuoNebs 4 times daily as needed for wheezing/shortness of breath Encourage incentive spirometry 10-15 times hourly while awake. Consider rapid transition to BiPAP postextubation due to suspected underlying COPD with history of heavy tobacco use Data and imaging reviewed: Morning labs reviewed. CBC showing acute blood loss anemia with hemoglobin of 11.3. BMP unremarkable. Blood glucose 94. Calcium 9.2. Magnesium 1.9. And liver profile showing no significant abnormalities. Vital signs reviewed. Blood pressure soft this morning at 93/47, heart rate 77, respiratory rate 16, temp 98.4 F, and SpO2 of 97% on 2 L. Thank you for allowing us to participate in the care of this pleasant patient. Do not hesitate to contact us with questions. Someone can be reached from the [facility] hospitalist group all hours of the day at [phone] or via perfect serve. Patient was seen independently by Nurse Pracitioner. This document was prepared using Finomial dictation software. Please allow for errors in vmware engineer, while rare they do occur. Kirk Motta RECORDS ADMINISTRATOR rendered care for this patient independently, reviewed the findings and plan as documented in the note above and agree with plan. I did not physically speak with or examine the patient on this date. Objective - Vital Signs Vital signs: Vital Signs Temp 98.4 F 11/16/24 08:00 Pulse 77 11/16/24 08:00 Resp 16 11/16/24 02:28 BP 93/47 11/16/24 08:00 Pulse Ox 97 11/16/24 08:00 FiO2 Intake & Output 11/15/24 11/16/24 11/16/24 18:59 06:59 18:59 Weight 58.967 kg Other: # Voids 1 - Labs CBC & Chem 7: 11/16/24 02:45 11/16/24 02:45 Labs: Abnormal Lab Results - Last 24 Hours (Table) 11/15/24 11/15/24 11/16/24 Range/Units 20:36 20:36 02:45 WBC 10.68 H (4.50-10.00) 10*3/uL RBC 4.23 L 3.56 L (4.40-5.60) 10*6/uL Hgb 11.3 L (13.0-17.0) g/dL Hct 38.6 L 33.3 L (39.6-50.0) % MPV 9.2 L 9.4 L (9.5-12.2) fL Neutrophils # 7.93 H (1.80-7.70) 10*3/uL Monocytes # 1.10 H (0.20-1.00) 10*3/uL Basophils # 0.15 H 0.12 H (0.00-0.10) 10*3/uL Sodium (137-145) mmol/L Plasma Lactic Acid Isra 0.6 L (0.7-2.0) mmol/L AST (17-59) U/L Total Protein (6.3-8.2) g/dL Albumin (3.5-5.0) g/dL 11/16/24 Range/Units 02:45 WBC (4.50-10.00) 10*3/uL RBC (4.40-5.60) 10*6/uL Hgb (13.0-17.0) g/dL Hct (39.6-50.0) % MPV (9.5-12.2) fL Neutrophils # (1.80-7.70) 10*3/uL Monocytes # (0.20-1.00) 10*3/uL Basophils # (0.00-0.10) 10*3/uL Sodium 136 L (137-145) mmol/L Plasma Lactic Acid Isra (0.7-2.0) mmol/L AST 16 L (17-59) U/L Total Protein 5.6 L (6.3-8.2) g/dL Albumin 3.4 L (3.5-5.0) g/dL
[2024-11-16] MEDS: HYDROcodone/APAP 5-325MG 1 EACH TAB PO PRN (15:19)
[2024-11-16] MEDS ORDERED: TRANEXAMIC 1,000 MG/100ML-NACL 1,000 MG in SALINE 1 100ML.BAG IVPB PRN (18:17)
[2024-11-16] MEDS ORDERED: ROPIVACAINE/EPI/CLONIDINE/KET 50 ML SYRINGE MISCELLANE PRN (18:17)
[2024-11-16] MEDS ORDERED: HYDROmorphone 0.5 MG/0.5 ML SYRINGE IVP PRN (18:22)
[2024-11-16] MEDS: SODIUM CHLORIDE 0.9% 100 ML with ceFAZolin 2,000 MG IV ONE (20:36)
[2024-11-16] MEDS ORDERED: PHENYLEPHRINE 10 MG/ML VIAL ONE (20:36)
[2024-11-16] MEDS ORDERED: PROPOFOL 10 MG/ML 20 ML VIAL IV ONE (20:36)
[2024-11-16] MEDS ORDERED: TRANEXAMIC 1,000 MG/100ML-NACL PREMIX BAG ONE (20:36)
[2024-11-16] MEDS ORDERED: KETAMINE HCL IN 0.9 % NACL 50 MG/5 ML SYRINGE ONE (20:36)
[2024-11-16] MEDS: SODIUM CHLORIDE 0.9% 1,000 ML IV ONE (20:36)
[2024-11-16] MEDS ORDERED: MIDAZOLAM 2 MG/2 ML VIAL ONE (20:36)
[2024-11-16] MEDS ORDERED: MAGNESIUM HYDROXIDE 2,400 MG/30 ML CUP PO PRN (21:12)
[2024-11-16] MEDS ORDERED: HYDROcodone/APAP 5-325MG 1 EACH TAB PO PRN (21:12)
[2024-11-16] MEDS: LACTATED RINGERS 1,000 ML IV ONE (22:03)
--- NOTE | 2024-11-17 00:39 | XR ---
Fluoroscopy INDICATION: Pain FINDINGS: Fluoroscopy time: 15.3 seconds. Total dose area product (DAP) in uGy*m?, mGy*cm? (or similar): 3.2359 Images obtained: 3. Images document the procedure. IMPRESSION: 1. Documentation of fluoroscopy. [facility], Workstation: [facility], 11/17/2024 12:36 AM
[2024-11-17] MEDS: HYDROcodone/APAP 10-325MG 1 EACH TAB PO PRN ×2 (00:44→12:13)
[2024-11-17] MEDS: DEXAMETHASONE SOD PHOSPHATE 4 MG/ML 1 ML VIAL IV ONE (00:50)
[2024-11-17] MEDS: ONDANSETRON 4 MG/2 ML VIAL IVP ONE (00:50)
[2024-11-17] MEDS: LACTATED RINGERS 1,000 ML IV SCH (00:50)
--- NOTE | 2024-11-17 00:53 | FL ---
Fluoroscopy INDICATION: Pain FINDINGS: Fluoroscopy time: 15.3 seconds. Total dose area product (DAP) in uGy*m?, mGy*cm? (or similar): 3.2359 Images obtained: 3. Images document the procedure. IMPRESSION: 1. Documentation of fluoroscopy. [facility], Workstation: [facility], 11/17/2024 12:50 AM
--- NOTE | 2024-11-17 08:32 | P.PN ---
Subjective Progress Note Date: 11/17/24 Principal diagnosis: Status post left hip IT nail This is a 74 year-old male post left hip IT nail This is post-op day 1. The patient was evaluated at the bedside this morning. The patient denies nausea, vomiting, abdominal pain, chest pain, or shortness of breath this morning. He states his pain is moderately controlled at this time. The patient has not been up with physical therapy yet this morning. Objective - Vital Signs Vital signs: Vital Signs Temp 98.8 F 11/17/24 07:02 Pulse 78 11/17/24 07:02 Resp 16 11/17/24 07:02 BP 118/45 11/17/24 07:02 Pulse Ox 98 11/17/24 07:02 FiO2 Intake & Output 11/16/24 11/17/24 11/17/24 18:59 06:59 18:59 Intake Total 700 Output Total 375 1236 Balance -375 -536 Intake: IV 700 Output: Urine 375 600 Straight 600 Post Void Residual 586 Estimated Blood Loss 50 Other: # Bowel Movements 0 - Exam The patient does not appear in acute distress. Alert and orientated x3. Dressings are clean dry and intact. Incisions appear fine with no erythema or active drainage. Calf is soft and nontender. Good foot and ankle motion without difficulty. Sensation and circulatory status is intact. - Labs CBC & Chem 7: 11/16/24 02:45 11/17/24 06:29 Assessment and Plan (1) Fall Current Visit: Yes Status: Acute Code(s): W19.XXXA - UNSPECIFIED FALL, INITIAL ENCOUNTER SNOMED Code(s): 4441799 (2) Hip fracture, left Current Visit: Yes Status: Acute Code(s): S72.002A - FRACTURE OF UNSP PART OF NECK OF LEFT FEMUR, INIT SNOMED Code(s): 768888148 Plan: 1. Continue pain control 2. Anticoagulation with Aspirin 81 mg BID 3. Start physical therapy and ambulation today 4. Anticipate discharge home with homecare vs. skilled rehab depending how he does with therapy.
[2024-11-17] MEDS: ONDANSETRON 4 MG/2 ML VIAL IVP PRN (08:39)
[2024-11-17] MEDS: CITALOPRAM HYDROBROMIDE 20 MG TAB PO SCH (10:21)
[2024-11-17] MEDS: ASPIRIN 81 MG PO SCH (10:22)
[2024-11-17] MEDS: oxyCODONE-APAP 5-325MG 1 EACH TAB PO PRN (10:52)
[2024-11-17] MEDS: buPROPion XL 150 MG TAB.ER.24H PO SCH (10:55)
[2024-11-17 11:02] LABS: BUN/Creat Ratio 12.56 Ratio (12.00-20.00); Blood Urea Nitrogen 11.3 mg/dL (9.0-27.0); Glucose 160 mg/dL (70-110)
[2024-11-17 11:03] LABS: ALT 11 U/L (10-49); AST 20 U/L (14-35); Albumin 3.3 g/dL (3.8-4.9); Albumin/Globulin Ratio 2.20 Ratio (1.60-3.17); Alkaline Phosphatase 56 U/L (41-126); Anion Gap 10.10 mmol/L (4.00-12.00); Calcium 7.9 mg/dL (8.7-10.3); Carbon Dioxide 20.9 mmol/L (21.6-31.8); Chloride 103 mmol/L (96-109); Globulin 1.5 g/dL (1.6-3.3); Magnesium 1.8 mg/dL (1.5-2.4); Potassium 3.8 mmol/L (3.5-5.5); Sodium 134 mmol/L (135-145); Total Protein 4.8 g/dL (6.2-8.2)
[2024-11-17] MEDS: TAMSULOSIN 0.4 MG CAP.ER.24H PO SCH (13:40)
--- NOTE | 2024-11-17 13:53 | P.PN ---
Subjective Progress Note Date: 11/17/24 Hospital course: Patient is a pleasant 74-year-old male with a past medical history of GERD, iron deficiency anemia, and nicotine dependence. He presented to the hospital on 11/15/2024 via EMS after a trip and fall resulting in left hip pain. Upon arrival to our facility, patient underwent evaluation in the emergency department. Vital signs upon arrival show blood pressure 177/93, heart rate 77, respiratory rate 18, temp 98.2 F, SpO2 of 98% on room air. EKG completed showing normal sinus rhythm at 74 bpm. Chest x-ray completed negative for acute cardiopulmonary process. X-ray pelvis and left femur completed showing acute mildly displaced left proximal femoral intertrochanteric fracture with fixation changes involving the right proximal femur with hardware reported to be intact. Labs completed and reviewed. CBC showing leukocytosis with WBC count of 10.68. Coagulation profile normal findings. BMP unremarkable. Blood glucose 88. Lactic acid 0.6. Magnesium 2.0. Liver profile unremarkable. Troponin negative at less than 0.012 and proBNP 630. Patient admitted under orthopedic surgery team and we were consulted for medical clearance and medical management throughout hospitalization patient underwent. Left ORIF with medullary nailing on 11/16/2024. Physical exam: Patient seen and fully evaluated at bedside this morning. He is postoperative day 1. He reports doing well, states having some urinary retention and required straight catheterization this morning. He reports continued moderate pain throughout left hip currently rating 8 out of 10 but states that his because he just got done working with physical therapy. He denies any other complaints including headache, lightheadedness, dizziness, chest pain, palpitations, shortness of breath, or experiencing any focal numbness/weakness/tingling in his extremities. Vital signs reviewed and stable. General: Nontoxic, no distress and appears stated age. Derm: Skin warm and dry, normal coloration for ethnicity. Head: Atraumatic, normocephalic and symmetric. Eyes: EOM's intact, no lid lag, and anicteric sclera Mouth: no lip lesions, mucus membranes moist Cardiovascular: regular rate and rhythm with normal S1S2, no murmur, positive posterior tibial pulses bilaterally, and cap refill < 2 seconds. Lungs: Respirations even, regular, and unlabored on room air. Lungs CTA bilaterally, no rhonchi, no rales, no wheezing, and no accessory muscle usage. Abdominal: soft, nontender to palpation, no guarding, no appreciable organomegaly Ext: No gross muscle atrophy, no edema, no contractures. Station intact. Movement of left lower extremity limited secondary to acute fracture and elevated on pillow at this time. Patient able to move left ankle and foot without difficulties, movement of left leg not assessed at this time secondary to acute fracture and need for immobilization. Neuro: Speech clear, face symmetrical and CN II-XII grossly intact with no noted focal neuro deficits Psych: Alert and oriented to person, place, time, and situation. Appropriate and pleasant affect. Assessment and Plan of Care: Status post left ORIF with medullary nailing secondary to Acute dislocated left paroxysmal femoral intertrochanteric femur fracture -Management per primary admitting orthopedic surgery team including DVT prophylaxis, pain management, postoperative wound/dressing/drain care, weightb earing, and PT/OT. -Continue pain management with Tylenol 650 mg every 6 hours as needed for mild pain, [place] 5/325 mg tablets every 4 hours as needed for moderate pain, and Dilaudid 1 mg IVP every 3 hours as needed for severe pain. Postoperative urinary retention Patient started on Flomax 0.4 mg daily. Continue bladder scans as needed to monitor for postvoid and requires greater than 2 straight catheterizations, will place order for insertion of Darby catheter. Acute blood loss anemia, secondary to femur fracture Initial hemoglobin 13.1 with repeat hemoglobin of 11.3 and postoperative h emoglobin is pending. Acute blood loss secondary to acute femur fracture. Will continue to monitor closely with repeat a.m. labs and transfuse as needed for hemoglobin less than 7. Nicotine dependence with suspected underlying COPD Continue nicotine patch 14 mg daily Provide supplemental oxygen as needed to maintain SpO2 equal to or greater than 90%. Continue DuoNebs 4 times daily as needed for wheezing/shortness of breath Encourage incentive spirometry 10-15 times hourly while awake. Data and imaging reviewed: Morning labs reviewed. CBC pending. BMP showing sodium 134, bicarb 20.9, and blood glucose of 160. Magnesium 1.8. Albumin 3.3. Total protein 4.8. Vital signs reviewed. Blood pressure 118/45, heart rate 78, respiratory rate 16, temp 98.8 F, and SpO2 of 98% on room air Thank you for allowing us to participate in the care of this pleasant patient. Do not hesitate to contact us with questions. Someone can be reached from the [facility] hospitalist group all hours of the day at [phone] or via perfect serve. Patient was seen independently by Nurse Pracitioner. This document was prepared using [employer] dictation software. Please allow for errors in superintendent distribution, while rare they do occur. Kirk Motta STAFFING CONSULTANT rendered care for this patient independently, reviewed the findings and plan as documented in the note above and agree with plan. I did not physically speak with or examine the patient on this date. Objective - Vital Signs Vital signs: Vital Signs Temp 98.8 F 11/17/24 07:02 Pulse 78 11/17/24 07:02 Resp 16 11/17/24 07:02 BP 118/45 11/17/24 07:02 Pulse Ox 98 11/17/24 07:02 FiO2 Intake & Output 11/16/24 11/17/24 11/17/24 18:59 06:59 18:59 Intake Total 700 Output Total 375 1236 Balance -375 -536 Intake: IV 700 Output: Urine 375 600 Straight 600 Post Void Residual 586 Estimated Blood Loss 50 Other: # Bowel Movements 0 - Labs CBC & Chem 7: 11/16/24 02:45 11/17/24 06:29 Labs: Abnormal Lab Results - Last 24 Hours (Table) 11/17/24 Range/Units 06:29 Sodium 134 L (135-145) mmol/L Carbon Dioxide 20.9 L (21.6-31.8) mmol/L Glucose 160 H (70-110) mg/dL Calcium 7.9 L (8.7-10.3) mg/dL Total Protein 4.8 L (6.2-8.2) g/dL Albumin 3.3 L (3.8-4.9) g/dL Globulin 1.5 L (1.6-3.3) g/dL
[2024-11-17] MEDS: SENNOSIDES-DOCUSATE SODIUM 1 EACH TAB PO SCH (20:28)
--- NOTE | 2024-11-17 22:39 | P.OP ---
Date of Procedure: 11/16/24 Preoperative Diagnosis: Left hip intertrochanteric fracture Postoperative Diagnosis: same Procedure(s) Performed: Left hip intramedullary nail Implants: Merline gamma nail, 90mm lag screw, 37.5 locking screw Anesthesia: spinal Surgeon: Yaa Malik Estimated Blood Loss (ml): 50 Condition: stable Disposition: PACU Indications for Procedure: Patient had a ground level fall sustained an intertrochanteric fracture. We have discussed options and decided to proceed with IMN. He has been cleared by medicine. Description of Procedure: The patient, operative extremity, and procedure were identified in the pre-op holding area. After informed consent was obtained. The patient was brought back to the OR. The patient was then positioned on the [place] table. Both feet were placed in well padded boots and the well leg was scissored with traction unlocked. All bony prominences were well padded. A reduction was performed with abduction and traction followed by adduction and internal rotation. This was confirmed on fluoroscopy. The operative site was then prepped and draped in normal sterile fashion. A 5cm incision was made posterior and proximal to the greater trochanter. The awl was introduced and used to hold the start point for the guide wire at the tip of the trochanter. The guide wire was then inserted. The position of the guide wire was confirmed on orthogonal views. The awl was substituted for the opening reamer. The ball tip guide wire was then introduced across the fracture and once placement was confirmed, the 12.5mm reamer was threaded over the wire and removed. The short nail was then placed over the wire and seated to the proper depth. The guide wire was removed. The triple cannula was then utilized to place the femoral neck guide pin. An incision was made to seat the triple cannula. Wire placement was checked on orthogonal views. The measuring guide showed that a 90mm screw would be appropriate for a tip to apex distance of less than 25mm. The reamer was set and utilized. The lag screw was then inserted. The superior locking screw was then tightened and loosened a quarter turn. The triple sleeve was removed and the jig was reset for the locking screw distally. The triple sleeve was inserted through an incision through skin and IT band. The hole was drilled and a 37.5 mm screw was selected and inserted. Final views showed acceptable reduction and placement of the hardware. Wounds were irrigated and closed with 2.0 vycril and 4.0 monocryl and skin glue. Wounds were dressed with optifoam. Patient was aroused by the anesthesia team and brought back to PACU in stable condition.
[2024-11-18 07:34] VITALS: BP 155/62; PULSE 89; RESP 16; TEMP 98.8
[2024-11-18 07:55] LABS: HCT 27.5 % (39.6-50.0); HGB 9.0 g/dL (13.0-17.0); MCH 30.6 pg (27.0-32.0); MCHC 32.7 g/dL (32.0-37.0); MCV 93.5 FL (80.0-97.0); NRBC Per 100 WBC 0 X 10*3/uL (0.00-0.01); Platelet Count 211 X 10*3/uL (140-440); RBC 2.94 X 10*6/uL (4.40-5.60); RDW 13.0 % (11.5-14.5); WBC 8.33 X 10*3/uL (4.50-10.00)
[2024-11-18 08:04] LABS: ALT 12 U/L (10-49); AST 23 U/L (14-35); Albumin 3.3 g/dL (3.8-4.9); Albumin/Globulin Ratio 1.94 Ratio (1.60-3.17); Alkaline Phosphatase 61 U/L (41-126); Anion Gap 6.50 mmol/L (4.00-12.00); BUN/Creat Ratio 11.56 Ratio (12.00-20.00); Blood Urea Nitrogen 10.4 mg/dL (9.0-27.0); Calcium 8.1 mg/dL (8.7-10.3); Carbon Dioxide 22.5 mmol/L (21.6-31.8); Chloride 105 mmol/L (96-109); Globulin 1.7 g/dL (1.6-3.3); Glucose 103 mg/dL (70-110); Magnesium 1.9 mg/dL (1.5-2.4); Potassium 4.0 mmol/L (3.5-5.5); Sodium 134 mmol/L (135-145); Total Protein 5.0 g/dL (6.2-8.2)
--- NOTE | 2024-11-18 12:41 | P.DS ---
Providers Date of admission: 11/15/24 22:39 Expected date of discharge: 11/18/24 Attending physician: Yaa Malik Consults: 11/15/24 22:39 Consult Physician Routine Consulting Provider: Clarita King Consult Reason/Comments: [employer]Manage Do you want consulting provider notified?: Yes Primary care physician: Bob Jackson - Discharge Diagnosis(es) (1) Fall Current Visit: Yes Status: Acute (2) Hip fracture, left Current Visit: Yes Status: Acute Hospital Course: This is a 74 year old male who presented to the hospital post fall at home and sustained a left hip fracture. The patient was cleared by medicine for surgery. The patient underwent a left hip IT nail on 11/16/[address] Malik. The procedure was performed without complication or sequelae. The patient is doing well postoperatively. Labs and vital signs are stable on the day of discharge. On the day of discharge the patient's hip incision is healing well. There is minimal erythema. There is no drainage noted at this time. There is minimal soft tissue swelling to the hip and thigh. The patient has full foot and ankle motion without difficulty or pain. Neurovascular status to the left lower extremity is intact. The patient is discharged to skilled rehab in good condition. See medication reconciliation for discharge medications. Pertinent Studies: Laboratory Tests 11/18/24 11/18/24 04:19 04:19 WBC 8.33 RBC 2.94 L Hgb 9.0 L Hct 27.5 L Sodium 134 L BUN/Creatinine Ratio 11.56 L Calcium 8.1 L Total Bilirubin <0.2 L Total Protein 5.0 L Albumin 3.3 L Patient Condition at Discharge: Stable Plan - Discharge Summary Discharge Rx Participant: Yes New Discharge Prescriptions: New oxyCODONE-APAP 5-325MG [Percocet 5-325 mg] 1 tab PO Q4HR PRN 3 Days #30 tab PRN Reason: Pain Sennosides-Docusate Sodium [Senokot-S] 2 tab PO DAILY #30 tablet Aspirin 81 mg PO BID #60 tab No Action Vitamin B (Unknown) 1 dose PO DAILY Vit C/E/Zn/Coppr/Lutein/Zeaxan [Preservision Areds 2 Softgel] 1 cap PO DAILY Hydrocodone/Acetaminophen [[place] 10-325] 2 tab PO Q4H PRN PRN Reason: Pain buPROPion XL [Wellbutrin XL] 300 mg PO DAILY Fish Oil/Dha/Epa [Fish Oil 1,200 mg Fish Oil] 1 cap PO DAILY Citalopram Hydrobromide [CeleXA] 40 mg PO DAILY Discharge Medication List Citalopram Hydrobromide [CeleXA] 40 mg PO DAILY 11/16/24 [History] Fish Oil/Dha/Epa [Fish Oil 1,200 mg Fish Oil] 1 cap PO DAILY 11/16/24 [History] Hydrocodone/Acetaminophen [[place] 10-325] 2 tab PO Q4H PRN 11/16/24 [History] Vit C/E/Zn/Coppr/Lutein/Zeaxan [Preservision Areds 2 Softgel] 1 cap PO DAILY 11/16/24 [History] Vitamin B (Unknown) 1 dose PO DAILY 11/16/24 [History] buPROPion XL [Wellbutrin XL] 300 mg PO DAILY 11/16/24 [History] Aspirin 81 mg PO BID #60 tab 11/18/24 [Rx] Sennosides-Docusate Sodium [Senokot-S] 2 tab PO DAILY #30 tablet 11/18/24 [Rx] oxyCODONE-APAP 5-325MG [Percocet 5-325 mg] 1 tab PO Q4HR PRN 3 Days #30 tab 11/18/24 [Rx] Follow up Appointment(s)/Referral(s): Yaa Malik [Doctor of Osteopathic Medicine] - 12/02/24 10:05 am [facility], [NON-STAFF] - As Needed Bbo Jackson DO [Primary Care Provider] - 1-2 days Activity/Diet/Wound Care/Special Instructions: Keep Optifoam dressing in place for 7 days unless saturated. After 7 days, remove dressing and apply dry 4x4s and paper tape. PT - WBAT with walker and assistance. Use pain medication as directed. Continue Aspirin 81 mg BID for 4 weeks Follow up outpatient with Dr. Malik in 2 weeks. Call [facility] with questions or concerns. Discharge Disposition: TRANSFER TO SNF/ECF
--- NOTE | 2024-11-18 13:38 | P.PN ---
Subjective Progress Note Date: 11/18/24 Hospital course: Patient is a pleasant 74-year-old male with a past medical history of GERD, iron deficiency anemia, and nicotine dependence. He presented to the hospital on 11/15/2024 via EMS after a trip and fall resulting in left hip pain. Upon arrival to our facility, patient underwent evaluation in the emergency department. Vital signs upon arrival show blood pressure 177/93, heart rate 77, respiratory rate 18, temp 98.2 F, SpO2 of 98% on room air. EKG completed showing normal sinus rhythm at 74 bpm. Chest x-ray completed negative for acute cardiopulmonary process. X-ray pelvis and left femur completed showing acute mildly displaced left proximal femoral intertrochanteric fracture with fixation changes involving the right proximal femur with hardware reported to be intact. Labs completed and reviewed. CBC showing leukocytosis with WBC count of 10.68. Coagulation profile normal findings. BMP unremarkable. Blood glucose 88. Lactic acid 0.6. Magnesium 2.0. Liver profile unremarkable. Troponin negative at less than 0.012 and proBNP 630. Patient admitted under orthopedic surgery team and we were consulted for medical clearance and medical management throughout hospitalization Patient underwent Left ORIF with medullary nailing on 11/16/2024. Physical exam: Patient seen and fully evaluated at bedside this morning. He is postoperative day 2. He reports doing well, states pain is gone at rest but continues to be significant with any movement. Denies having any other complaints at this time including headache, lightheadedness, dizziness, chest pain, palpitations, shortness of breath, or experiencing any numbness/tingling/weakness in his extremities. Patient reports he was able to urinate in urinal this morning. He is tolerating oral intake and denies any postoperative nausea or vomiting Vital signs reviewed and stable. General: Nontoxic, no distress and appears stated age. Derm: Skin warm and dry, normal coloration for ethnicity. Head: Atraumatic, normocephalic and symmetric. Eyes: EOM's intact, no lid lag, and anicteric sclera Mouth: no lip lesions, mucus membranes moist Cardiovascular: regular rate and rhythm with normal S1S2, no murmur, positive posterior tibial pulses bilaterally, and cap refill < 2 seconds. Lungs: Respirations even, regular, and unlabored on room air. Lungs CTA bilaterally, no rhonchi, no rales, no wheezing, and no accessory muscle usage. Abdominal: soft, nontender to palpation, no guarding, no appreciable organomegaly Ext: No gross muscle atrophy, no edema, no contractures. Station intact. Movement of left lower extremity limited secondary to acute fracture and elevated on pillow at this time. Patient able to move left ankle and foot without difficulties, movement of left leg not assessed at this time secondary to acute fracture and need for immobilization. Neuro: Speech clear, face symmetrical and CN II-XII grossly intact with no noted focal neuro deficits Psych: Alert and oriented to person, place, time, and situation. Appropriate and pleasant affect. Assessment and Plan of Care: Status post left ORIF with medullary nailing secondary to Acute dislocated left paroxysmal femoral intertrochanteric femur fracture -Management per primary admitting orthopedic surgery team including DVT prophylaxis, pain management, postoperative wound/dressing/drain care, weightbearing, and PT/OT. -Continue pain management with Tylenol 650 mg every 6 hours as needed for mild pain, [place] 5/325 mg tablets every 4 hours as needed for moderate pain, and Dilaudid 1 mg IVP every 3 hours as needed for severe pain. Postoperative urinary retention Patient started on Flomax 0.4 mg daily. Continue bladder scans as needed to monitor for postvoid and requires greater than 2 straight catheterizations, will place order for insertion of Darby catheter. Acute blood loss anemia, secondary to femur fracture followed by postoperative blood loss Initial hemoglobin 13.1 with current hemoglobin of 9.0. No active bleeding noted. No need for transfusion or further intervention at this time. Nicotine dependence with suspected underlying COPD Continue nicotine patch 14 mg daily Provide supplemental oxygen as needed to maintain SpO2 equal to or greater than 90%. Continue DuoNebs 4 times daily as needed for wheezing/shortness of breath Encourage incentive spirometry 10-15 times hourly while awake. Data and imaging reviewed: Morning labs reviewed. CBC showing normocytic anemia with hemoglobin of 9.0. BMP showing sodium 134 otherwise normal findings. Blood glucose 103. Magnesium 1.9. Liver profile unremarkable with exception of low albumin of 3.3. Vital signs reviewed. Blood pressure 155/62, heart rate 89, respiratory rate 16, temp 98.8 F, and SpO2 of 99% on room air. Thank you for allowing us to participate in the care of this pleasant patient. Do not hesitate to contact us with questions. Someone can be reached from the [facility] hospitalist group all hours of the day at [phone] or via perfect serve. Patient was seen independently by Nurse Pracitioner. This document was prepared using [employer] dictation software. Please allow for errors in membership secretary, while rare they do occur. Kirk Motta LIQUOR COMMISSIONER rendered care for this patient independently, reviewed the findings and plan as documented in the note above and agree with plan. I did not physically speak with or examine the patient on this date. Objective - Vital Signs Vital signs: Vital Signs Temp 98.8 F 11/18/24 07:09 Pulse 89 11/18/24 07:09 Resp 16 11/18/24 07:09 BP 155/62 11/18/24 07:09 Pulse Ox 99 11/18/24 07:09 FiO2 Intake & Output 11/17/24 11/18/24 11/18/24 18:59 06:59 18:59 Intake Total 700 200 Output Total 940 750 Balance -240 -550 Intake: Intake, IV Titration 700 200 Amount Sodium Chloride 0.9% 100 650 200 ml @ 0 mls/hr IV .STK-MED ONE with ceFAZolin 2,000 mg Rx#:[id number] ceFAZolin 2 gm In Sodium 50 Chloride 0.9% 50 ml @ 100 mls/hr IVPB ONCE PRN Rx# :[id number] Output: Urine 940 750 Straight 420 - Labs CBC & Chem 7: 11/18/24 04:19 11/18/24 04:19 Labs: Abnormal Lab Results - Last 24 Hours (Table) 11/17/24 11/18/24 11/18/24 Range/Units 06:29 04:19 04:19 RBC 2.94 L (4.40-5.60) X 10*6/uL Hgb 9.0 L (13.0-17.0) g/dL Hct 27.5 L (39.6-50.0) % Sodium 134 L 134 L (135-145) mmol/L Carbon Dioxide 20.9 L (21.6-31.8) mmol/L BUN/Creatinine Ratio 11.56 L (12.00-20.00) Ratio Glucose 160 H (70-110) mg/dL Calcium 7.9 L 8.1 L (8.7-10.3) mg/dL Total Bilirubin <0.2 L (0.3-1.2) mg/dL Total Protein 4.8 L 5.0 L (6.2-8.2) g/dL Albumin 3.3 L 3.3 L (3.8-4.9) g/dL Globulin 1.5 L (1.6-3.3) g/dL
== END 2024-11-18 15:35 | DRG 482 ==
LOC: EC 19:54 → 4SSUR 22:39
PROVIDERS: ADMIT Orthopaedic Surgery Hand Surgery; ATTEND Orthopaedic Surgery Hand Surgery
PROC: 0QS706Z Reposition Left Upper Femur with Intramedullary Internal Fixation Device, Open Approach (ICD-10-PCS; principal; 2024-11-17)
PROC: 8E0YXBF Computer Assisted Procedure of Lower Extremity, With Fluoroscopy (ICD-10-PCS; 2024-11-17)
DX: S72.142A Displaced intertrochanteric fracture of left femur, initial encounter for closed fracture (principal); D72.829 Elevated white blood cell count, unspecified; J44.9 Chronic obstructive pulmonary disease, unspecified; R33.8 Other retention of urine; N99.89 Other postprocedural complications and disorders of genitourinary system; I25.10 Atherosclerotic heart disease of native coronary artery without angina pectoris; F17.210 Nicotine dependence, cigarettes, uncomplicated; W01.0XXA Fall on same level from slipping, tripping and stumbling without subsequent striking against object, initial encounter; Y92.009 Unspecified place in unspecified non-institutional (private) residence as the place of occurrence of the external cause; Z71.6 Tobacco abuse counseling; Z79.82 Long term (current) use of aspirin; Z79.899 Other long term (current) drug therapy; Z82.49 Family history of ischemic heart disease and other diseases of the circulatory system; Z88.5 Allergy status to narcotic agent; Y84.8 Other medical procedures as the cause of abnormal reaction of the patient, or of later complication, without mention of misadventure at the time of the procedure
CPT/HCPCS: 36415; 71045; 72170; 73502; 80053; 83605; 83735; 83880; 84100; 84484; 85025; 85027; 85610; 85730; 86850; 86900; 86901; 93005